=== PATIENT | female | born 1960 | race Caucasian/White ===

== ENCOUNTER → 2017-10-29 | Outpatient (CLI) | payer OTHER | END | disposition home or self-care (01) | LOC: LABPAT 15:35 | PROVIDERS: ATTEND Orthopaedic Surgery | DX: Z01.812 Encounter for preprocedural laboratory examination (principal) | CPT/HCPCS: 87070 ==

== ENCOUNTER 2017-11-03 06:21 | Inpatient (IN) | payer OTHER ==
[2017-11-02 11:09] VITALS: BMI 37.3
[~2017-11-03 06:21] MED LIST: HYDROmorphone 0.5 MG/0.5 ML SYRINGE IVP PRN; ONDANSETRON 4 MG/2 ML VIAL IVP PRN; ceFAZolin IN SWFI 2 GM/20 ML SYRINGE IVP ONE; fentaNYL (PF) 50 MCG/ML 2 ML AMP IV PRN
[2017-11-03] MEDS ORDERED: ONDANSETRON 4 MG/2 ML VIAL ONE (07:02)
[2017-11-03] MEDS ORDERED: LIDOCAINE 1% 20 ML VIAL (10MG/ML) FOR IV START INTRADERMA ONE (07:11)
[2017-11-03] MEDS: LACTATED RINGERS 1,000 ML IV SCH ×5 (07:11→20:07)
[2017-11-03] MEDS ORDERED: DEXAMETHASONE SOD PHOSPHATE 10 MG/ML 1 ML VIAL IV ONE (07:12)
[2017-11-03] MEDS ORDERED: SCOPOLAMINE 1.5MG/72HR PATCH TRANSDERM ONE (07:12)
[2017-11-03 07:18] LABS: Glucose,Whole Blood 106 mg/dL (75-99)
[2017-11-03] MEDS ORDERED: fentaNYL (PF) 50 MCG/ML 2 ML AMP ONE (07:47)
[2017-11-03] MEDS ORDERED: MIDAZOLAM 2 MG/2 ML VIAL ONE (07:47)
[2017-11-03] MEDS ORDERED: diphenhydrAMINE 50 MG/ML 1 ML VIAL ONE (07:47)
[2017-11-03] MEDS ORDERED: ceFAZolin 3,000 MG in SODIUM CHLORIDE 0.9% IRRIGATIO 3,000 ML IRRIGATION ONE (08:15)
[2017-11-03] MEDS ORDERED: LACTATED RINGERS 1,000 ML IV ONE (08:25)
[2017-11-03] MEDS ORDERED: ONDANSETRON 4 MG/2 ML VIAL IVP PRN (09:52)
[2017-11-03] MEDS ORDERED: NA PHOS,M-B/NA PHOS,DI-BA 133 ML ENEMA RECTAL PRN (09:52)
[2017-11-03] MEDS ORDERED: MAGNESIUM HYDROXIDE 2,400 MG/10 ML CUP PO PRN (09:52)
[2017-11-03] MEDS ORDERED: NALOXONE 0.4 MG/ML 1 ML VIAL IV PRN (09:52)
[2017-11-03] MEDS ORDERED: MORPHINE SULFATE 2 MG/ML SYRINGE IVP PRN ×2 (09:52)
[2017-11-03] MEDS ORDERED: BISACODYL 10 MG SUPP RECTAL PRN (09:52)
[2017-11-03] MEDS ORDERED: MORPHINE SULFATE 2 MG/ML SYRINGE IV PRN ×2 (09:52)
[2017-11-03] MEDS ORDERED: ACETAMINOPHEN TAB 325 MG TAB PO PRN (09:52)
[2017-11-03] MEDS ORDERED: HYDROcodone/APAP 5-325MG 1 EACH TAB PO PRN (09:52)
[2017-11-03] MEDS ORDERED: TEMAZEPAM 15 MG CAP PO PRN (09:52)
--- NOTE | 2017-11-03 10:15 | XR ---
EXAMINATION TYPE: XR knee limited RT DATE OF EXAM: 11/03/2017 COMPARISON: NONE TECHNIQUE: Two views submitted HISTORY: Post op FINDINGS: There is a prosthetic knee in near anatomic alignment. There is soft tissue edema and emphysema. IMPRESSION: 1. Postoperative change. Appears in near-anatomic alignment
[2017-11-03] MEDS ORDERED: ALBUTEROL NEBULIZED 2.5 MG/3 ML INHALATION PRN (12:09)
[2017-11-03] MEDS ORDERED: BUDESONIDE 1 MG/2 ML NEBU INHALATION PRN (12:09)
[2017-11-03] MEDS ORDERED: SUCRALFATE 1 GM TAB PO PRN (12:09)
[2017-11-03] MEDS: hydrOXYzine PAMOATE 25 MG CAP PO PRN ×2 (12:26→19:42)
[2017-11-03] MEDS: HYDROcodone/APAP 5-325MG 1 EACH TAB PO PRN ×2 (12:26→19:44)
--- NOTE | 2017-11-03 13:32 | P.CONS ---
History of Present Illness - Reason for Consult Consult date: 11/03/17 Medical Management Requesting physician: Luis Espinoza - Chief Complaint s/p right TKA - History of Present Illness 57-year-old female who underwent elective right total knee arthroplasty on 11/03/[address] Cowart was consulted for medical management. The patient underwent right knee arthroscopy, medial menisectomy, and medial femoral chondroplasty on 08/19/2017. She reports having an effusion of her knee postoperatively that required drainage. The patient states she continued to have pain in her knee and decided to undergo knee replacement. She has a history of asthma, gastroesophageal reflux disease, hypertension, osteoarthritis, anxiety, and depression. She has a surgical history of hysterectomy and 2 C-sections. She is a nonsmoker. She denies alcohol use. The patient was seen and examined at the bedside post-operatively. She is complaining of pain to her right knee 10/10. She reports receiving morphine which did not help her pain. She just received 2 [place] and Vistaril. She complains of pain to the anterior knee and thigh. Caleb bandage wrap is present. She denies shortness of breath or cough. Denies chest pain or pressure. Denies nausea or vomiting. She states she has been tolerating liquids after surgery. She remains hemodynamically stable. Review of Systems GENERAL: Patient denies fever. Denies chills. EYES: Denies blurred vision. Denies vision changes. Denies eye pain. EARS, NOSE, MOUTH, & THROAT: Denies headache. Denies sore throat. Denies ear pain. RESPIRATORY: Denies cough. Denies shortness of breath. Denies sputum production. Denies hemoptysis. CARDIOVASCULAR: Denies chest pain or pressure. Denies palpitations. Denies arrhythmias. GASTROINTESTINAL: Denies abdominal pain. Denies diarrhea. Denies constipation. Denies nausea. Denies vomiting. Denies heartburn. Denies blood in the stool. GENITOURINARY: Denies urinary frequency. Denies burning. Denies dysuria. Denies cloudy urine. Denies blood in the urine. MUSCULOSKELETAL: Positive for pain to right anterior knee and thigh. INTEGUMENTARY: Denies pruitis. Denies rash. PSYCHIATRIC: Denies suicidal or homicial ideations. ENDOCRINE: Denies weight change. Denies polydipsia. Denies polyuria. HEMATOLOGIC: Denies bleeding disorders. Past Medical History Past Medical History: Asthma, GERD/Reflux, Hypertension, Osteoarthritis (OA) Additional Past Medical History / Comment(s): hypoglycemia, hx. ulcers History of Any Multi-Drug Resistant Organisms: None Reported Past Surgical History: Section, Cholecystectomy, Hysterectomy, Orthopedic Surgery Additional Past Surgical History / Comment(s): C/S x2, arthroscopy knee, laparoscopy Past Anesthesia/Blood Transfusion Reactions: No Reported Reaction Smoking Status: Never smoker - Past Family History Mother Family Medical History: Cancer Father Family Medical History: Cancer Medications and Allergies Home Medications Medication Instructions Recorded Confirmed Type Albuterol Sulfate [Proair Hfa] 1 - 2 puff INHALATION RT-Q6H PRN 11/02/17 History Budesonide [Pulmicort Flexhaler] 2 puff INHALATION RT-BID PRN 11/02/17 11/03/17 History Escitalopram [Lexapro] 20 mg PO DAILY 11/02/17 11/03/17 History HYDROcodone/APAP 5-325MG [[place] 1 tab PO Q6HR PRN 11/02/17 11/03/17 History 5-325] Lansoprazole [Prevacid] 30 mg PO DAILY 11/02/17 11/03/17 History QUEtiapine [SEROquel] 150 mg PO HS 11/02/17 11/03/17 History Sucralfate [Carafate] 1 gm PO BID PRN 11/02/17 11/03/17 History Warfarin [Coumadin] 7.5 mg PO DAILY@199911/02/17 11/03/17 History amLODIPine [Norvasc] 5 mg PO BID 11/02/17 11/03/17 History cloNIDine HCL [Catapres] 0.1 mg PO BID 11/02/17 11/03/17 History clonazePAM [KlonoPIN] 1.5 mg PO HS 11/02/17 11/03/17 History lamoTRIgine [LaMICtal] 150 mg PO DAILY 11/02/17 11/03/17 History Allergies Allergy/AdvReac Type Severity Reaction Status Date / Time Iodinated Contrast- Oral and Allergy Dyspnea Verified 11/03/17 10:00 IV Dye shellfish derived Allergy Dyspnea Verified 11/03/17 10:00 levofloxacin [From Levaquin] AdvReac GI upset Verified 11/03/17 10:00 povidone-iodine AdvReac Itching Verified 11/03/17 10:00 [From Betadine] soap [From Betadine] AdvReac Itching Verified 11/03/17 10:00 Physical Exam Vitals: Vital Signs Temp Pulse Pulse Resp BP Pulse Ox 11/03/17 11:43 96 11/03/17 10:29 97.7 F 72 16 124/60 96 11/03/17 10:15 71 16 125/63 97 11/03/17 10:00 70 16 123/64 96 11/03/17 09:45 97.7 F 74 16 125/61 96 11/03/17 07:04 97.1 F L 76 16 130/77 95 Intake and Output 11/02/17 11/03/17 11/03/17 22:59 06:59 14:59 Intake Total 1201 Output Total 1050 Balance 151 Intake: IV 1201 Output: Urine 1000 Estimated Blood Loss 50 Other: Voiding Method Bedpan # Voids 1 GENERAL: This is a 57-year-old female in no apparent distress at the time of examination, but appears to be uncomfortable and in pain. Pleasant and cooperative. HEENT: Head is atraumatic, normocephalic. Pupils are equal, round, and reactive to light. Sclerae anicteric. Conjunctivae are clear. Mucus membranes of the mouth are moist. Neck is supple. RESPIRATORY: Clear to ausculation. No wheezes, rales, or rhonchi. No use of accessory muscles. Patient maintaining oxygen saturation greater than 92%. No chest wall tenderness is noted on palpation or with deep breathing. CARDIOVASCULAR: Regular rate and rhythm. S1 and S2 noted. No systolic or diastolic murmur auscultated. No JVD noted. No S3 or S4 noted. GASTROINTESTINAL: No distention noted. Abdomen soft and round. Normal active bowel sounds auscultated x 4 quadrants. No pain or tenderness noted upon palpation. INTEGUMENTARY: Caleb bandage wrap to right lower extremity with ice packs noted. No drainage noted. No cyanosis. No jaundice. No rashes noted. No cellulitis noted. EXTREMITIES: 2+ peripheral pulses. No evidence of peripheral edema. No calf tenderness noted. NEUROLOGIC: Cranial nerves II-XII intact. PSYCHIATRIC: Awake, alert, and oriented X 3. Appropriate affect. Intact judgement and insight. Results Labs: Abnormal Lab Results - Last 24 Hours (Table) 11/03/17 Range/Units 07:14 POC Glucose (mg/dL) 106 H (75-99) mg/dL Assessment and Plan Plan: ASSESSMENT: Osteoarthritis, s/p right total knee arthroplasty, POD # 0 History of recent right knee arthroscopy, medial menisectomy, and medial femoral chondroplasty on 08/19/2017. History of asthma, no evidence of acute exacerbation Gastroesophageal reflux disease Hypertension Generalized anxiety disorder Depression Obesity: BMI 37.3 PLAN: Continue postoperative care per orthopedics Pain control. We will add Dilaudid 0.5 mg every 3 hours PRN as patient continues to have severe pain Activity as tolerated Incentive spirometer 10 times an hour while awake Resume all medications Monitor labs GI prophylaxis: Protonix 40 mg PO Daily DVT prophylaxis: Coumadin Monitor vital signs and address as appropriate Further recommendations pending patient's course Thank you for this consult. We will continue to follow along with Danielle during her hospital stay. Nurse practitioner note has been reviewed by physician. Signing provider agrees with the documented findings, assessment, and plan of care.
[2017-11-03] MEDS: HYDROmorphone 0.5 MG/0.5 ML SYRINGE IVP PRN ×3 (13:50→21:59)
[2017-11-03] MEDS: ceFAZolin IN SWFI 2 GM/20 ML SYRINGE IVP SCH (17:15)
[2017-11-03] MEDS ORDERED: WARFARIN 5 MG TAB PO ONE (18:00)
[2017-11-03] MEDS: amLODIPine 5 MG TAB PO SCH (20:10)
[2017-11-03] MEDS: QUEtiapine 50 MG TAB PO SCH (20:10)
[2017-11-03] MEDS: cloNIDine HCL 0.1 MG TAB PO SCH (20:10)
[2017-11-03] MEDS: SENNOSIDES-DOCUSATE SODIUM 1 EACH TAB PO SCH (20:12)
[2017-11-03] MEDS: clonazePAM 0.5 MG TAB PO SCH (20:12)
[2017-11-04] MEDS: ceFAZolin IN SWFI 2 GM/20 ML SYRINGE IVP SCH (00:17)
[2017-11-04] MEDS: hydrOXYzine PAMOATE 25 MG CAP PO PRN (03:02)
[2017-11-04] MEDS: HYDROcodone/APAP 5-325MG 1 EACH TAB PO PRN (03:03)
[2017-11-04] MEDS: HYDROmorphone 0.5 MG/0.5 ML SYRINGE IVP PRN (05:15)
[2017-11-04] MEDS: LACTATED RINGERS 1,000 ML IV SCH ×3 (06:11→14:58)
[2017-11-04 08:07] LABS: INR 1.8 (<1.2); Prothrombin Time 16.7 sec (9.0-12.0)
[2017-11-04 08:26] LABS: Anion Gap 14 mmol/L; Blood Urea Nitrogen 9 mg/dL (7-17); Calcium 9.4 mg/dL (8.4-10.2); Carbon Dioxide 25 mmol/L (22-30); Chloride 99 mmol/L (98-107); Glucose 111 mg/dL (74-99); Sodium 138 mmol/L (137-145)
[2017-11-04 08:30] LABS: Potassium 5.1 mmol/L (3.5-5.1)
[2017-11-04] MEDS: ESCITALOPRAM 20 MG TAB PO SCH (08:33)
[2017-11-04] MEDS: PANTOPRAZOLE 40 MG TABLET PO SCH (08:33)
[2017-11-04] MEDS: lamoTRIgine 100 MG TAB PO SCH (08:34)
[2017-11-04] MEDS: amLODIPine 5 MG TAB PO SCH ×2 (08:34→20:32)
[2017-11-04] MEDS: cloNIDine HCL 0.1 MG TAB PO SCH ×2 (08:34→20:32)
[2017-11-04] MEDS ORDERED: KETOROLAC 30 MG/ML 1 ML VIAL IVP PRN (08:40)
[2017-11-04] MEDS ORDERED: HYDROcodone/APAP 7.5-325MG 1 EACH TAB PO PRN (08:42)
--- NOTE | 2017-11-04 08:51 | P.PN ---
Subjective Progress Note Date: 11/04/17 Principal diagnosis: Status post right total knee arthroplasty This is a 57 year-old female post right total knee arthroplasty. This is post- op day 1. The patient was evaluated at the bedside today. The patient denies nausea, vomiting, abdominal pain, shortness of breath, and chest pain this morning. She states her pain is moderately controlled at this time. The patient has not been up with physical therapy. Objective - Vital Signs Vital signs: Vital Signs Temp 98.7 F 11/04/17 07:53 Pulse 88 11/04/17 07:53 Resp 15 11/04/17 07:53 BP 115/74 11/04/17 07:53 Pulse Ox 90 L 11/04/17 07:53 Intake & Output 11/03/17 11/04/17 11/04/17 18:59 06:59 18:59 Intake Total 2161 2825 Output Total 1850 1360 Balance 311 1465 Weight 117.934 kg Intake: IV 1201 Intake, IV Titration 1205 Amount Lactated Ringers 1,000 ml 1205 @ 100 mls/hr IV .Q10H NATALIA Rx#:[id number] Oral 960 1620 Output: Urine 1800 1360 Estimated Blood Loss 50 Other: Voiding Method Bedpan Bedpan # Voids 1 3 # Bowel Movements 0 - Exam The patient does not appear in acute distress. Alert and orientated x3. Dressing is clean dry and intact. Incision appears fine with no erythema or active drainage. Calf is soft and nontender. Good foot and ankle motion without difficulty. Sensation and circulatory status is intact. - Labs CBC & Chem 7: 11/04/17 07:01 Labs: Abnormal Lab Results - Last 24 Hours (Table) 11/04/17 11/04/17 Range/Units 07:01 07:01 PT 16.7 H (9.0-12.0) sec INR 1.8 H (<1.2) Glucose 111 H (74-99) mg/dL Assessment and Plan (1) Primary localized osteoarthritis of right knee Current Visit: Yes Status: Acute Code(s): M17.11 - UNILATERAL PRIMARY OSTEOARTHRITIS, RIGHT KNEE SNOMED Code(s): 902266550 (2) Status post total right knee replacement Current Visit: Yes Status: Acute Code(s): Z96.651 - PRESENCE OF RIGHT ARTIFICIAL KNEE JOINT SNOMED Code(s): 0546447150954 Plan: 1. Continue pain control 2. Anticoagulation with Coumadin per protocol 3. Start physical therapy, CPM, and ambulation 4. Anticipate discharge home with homecare likely on Thursday
--- NOTE | 2017-11-04 09:35 | OP ---
OPERATIVE REPORT DATE OF SERVICE: 11/03/2017 SURGEON: Luis Espinoza DO. MAIL OFFICER: Melanie Melvin NP. PREOPERATIVE DIAGNOSIS: Degenerative joint disease of right knee. POSTOPERATIVE DIAGNOSIS: Degenerative joint disease of right knee. PROCEDURE PERFORMED: Right total knee replacement arthroplasty utilizing Persona press-fit component. ANESTHESIA: Spinal. ESTIMATED BLOOD LOSS: SPECIMENS REMOVED: COMPLICATIONS: OPERATIVE FINDINGS: DESCRIPTION OF PROCEDURE: The patient was taken to the operative suite and placed in the supine position. Spinal anesthesia was performed by the department of anesthesiology. Betadine prep was carried out over the right knee from mid thigh to mid calf. Sterile drapes applied in the usual manner. A medial parapatellar incision was developed. Sharp dissection through subcutaneous tissue was performed. The medial retinaculum was incised. The patella was everted and dislocated laterally and the knee brought into flexion and held in a leg orantes. The intramedullary cutting guide was utilized in shaping the femur. A size 9 right femoral component was selected. The appropriate femoral cut were performed and the provisionary component size 9 was impacted into position with alignment and component to bone interface. Tibial cutting guide was then aligned and wafer cut was performed. The medial and lateral meniscus were excised. A size 5 tibial tibial component was selected for position as a positioning 10 mm spacer was utilized. The appropriate drill holes were then secured as the tibial component was marked for positioning. The patella was then shaped with shelving planer. A size 35 mm patella peg hole was marked and drilled. All trial components were then selected for final components. Pulsavac antibiotic solution was utilized in preparation for final components. The size right #5 trabecular metal pre-hole peg plate was placed in predrilled holes and impacted. The final size 9 right femoral component was placed in the predrilled hole and impacted for positioning. The final patellar component size 35 mm was placed in predrilled peg holes and impacted. Final size 10 polyethylene tray was inserted and locked into the tibial tray. The knee was placed in flexion as the pneumatic tourniquet was deflated. The area was irrigated with antibiotic Pulsavac solution. Superficial bleeding was controlled with electrocautery. The medial retinaculum was then approximated with #3 Vicryl suture horizontal mattress fashion, A #2 Quill suture was used to reenforce the retinaculum in running fashion. The 2-0 Vicryl was used for closure of the subcutaneous tissue and 3-0 Vicryl Quill suture was utilized in subcuticular closure of the skin. Dermabond was then utilized to seal the wound. Betadine and sterile pressure dressing was applied. The patient transferred to the recovery room in satisfactory condition. GROSS PATHOLOGY: There is evidence of a tricompartment degenerative joint disease of the right knee. MMODL / IJN: [id number] / [facility]
[2017-11-04 09:44] LABS: HCT 36.4 % (34.0-46.0); HGB 12.5 gm/dL (11.4-16.0); MCHC 34.4 g/dL (31.0-37.0); MCV 90.2 fL (80.0-100.0); Mean Platelet Volume 8.4; Platelet Count 278 k/uL (150-450); RBC 4.04 m/uL (3.80-5.40); RDW 13.7 % (11.5-15.5); WBC 10.1 k/uL (3.8-10.6)
--- NOTE | 2017-11-04 09:44 | P.PN ---
Subjective Progress Note Date: 11/04/17 57-year-old female who underwent elective right total knee arthroplasty on 11/03/[address] Cowart was consulted for medical management. The patient underwent right knee arthroscopy, medial menisectomy, and medial femoral chondroplasty on 08/19/2017. She reports having an effusion of her knee postoperatively that required drainage. The patient states she continued to have pain in her knee and decided to undergo knee replacement. She has a history of asthma, gastroesophageal reflux disease, hypertension, osteoarthritis, anxiety, and depression. She has a surgical history of hysterectomy and 2 C-sections. She is a nonsmoker. She denies alcohol use. 11/03/2017 The patient was seen and examined at the bedside post-operatively. She is complaining of pain to her right knee 03/03. She reports receiving morphine which did not help her pain. She just received 2 [place] and Vistaril. She complains of pain to the anterior knee and thigh. Caleb bandage wrap is present. She denies shortness of breath or cough. Denies chest pain or pressure. Denies nausea or vomiting. She states she has been tolerating liquids after surgery. She remains hemodynamically stable. 11/04/2017 The patient was seen and examined at the bedside. The patient states her pain has improved since yesterday and is currently tolerable. The patient states she has been up to the commode but has not worked with physical therapy or ambulated in the hallway. She denies nausea or vomiting. Denies shortness of breath or chest pain. Vital signs have been stable. Objective - Vital Signs Vital signs: Vital Signs Temp 98.7 F 11/04/17 07:53 Pulse 88 11/04/17 07:53 Resp 15 11/04/17 07:53 BP 115/74 11/04/17 07:53 Pulse Ox 90 L 11/04/17 07:53 Intake & Output 11/03/17 11/04/17 11/04/17 18:59 06:59 18:59 Intake Total 2161 2825 Output Total 1850 1360 Balance 311 1465 Weight 117.934 kg Intake: IV 1201 Intake, IV Titration 1205 Amount Lactated Ringers 1,000 ml 1205 @ 100 mls/hr IV .Q10H NATALIA Rx#:[id number] Oral 960 1620 Output: Urine 1800 1360 Estimated Blood Loss 50 Other: Voiding Method Bedpan Bedpan # Voids 1 3 # Bowel Movements 0 - Exam GENERAL: This is a 57-year-old female in no apparent distress at the time of examination. Pleasant and cooperative. HEENT: Head is atraumatic, normocephalic. Pupils are equal, round, and reactive to light. Sclerae anicteric. Conjunctivae are clear. Mucus membranes of the mouth are moist. Neck is supple. RESPIRATORY: Clear to ausculation. No wheezes, rales, or rhonchi. No use of accessory muscles. Patient maintaining oxygen saturation greater than 92%. No chest wall tenderness is noted on palpation or with deep breathing. CARDIOVASCULAR: Regular rate and rhythm. S1 and S2 noted. No systolic or diastolic murmur auscultated. No JVD noted. No S3 or S4 noted. GASTROINTESTINAL: No distention noted. Abdomen soft and round. Normal active bowel sounds auscultated x 4 quadrants. No pain or tenderness noted upon palpation. INTEGUMENTARY: Dressing to right knee clean dry and intact. Ice packs present. No drainage noted. No cyanosis. No jaundice. No rashes noted. No cellulitis noted. EXTREMITIES: 2+ peripheral pulses. No evidence of peripheral edema. No calf tenderness noted. NEUROLOGIC: Cranial nerves II-XII intact. PSYCHIATRIC: Awake, alert, and oriented X 3. Appropriate affect. Intact judgement and insight. - Labs CBC & Chem 7: 11/04/17 07:01 Labs: Abnormal Lab Results - Last 24 Hours (Table) 11/04/17 11/04/17 Range/Units 07:01 07:01 PT 16.7 H (9.0-12.0) sec INR 1.8 H (<1.2) Glucose 111 H (74-99) mg/dL Assessment and Plan Plan: ASSESSMENT: Osteoarthritis, s/p right total knee arthroplasty, POD # 1 History of recent right knee arthroscopy, medial menisectomy, and medial femoral chondroplasty on 08/19/2017. History of asthma, no evidence of acute exacerbation Gastroesophageal reflux disease Hypertension Generalized anxiety disorder Depression Obesity: BMI 37.3 PLAN: Continue postoperative care per orthopedics Pain control. Activity as tolerated. Encourage ambulation. PT/OT Incentive spirometer 10 times an hour while awake Monitor labs. Monitor INR GI prophylaxis: Protonix 40 mg PO Daily DVT prophylaxis: Coumadin Monitor vital signs and address as appropriate Further recommendations pending patient's course Nurse practitioner note has been reviewed by physician. Signing provider agrees with the documented findings, assessment, and plan of care.
[2017-11-04] MEDS: HYDROcodone/APAP 7.5-325MG 1 EACH TAB PO PRN ×3 (10:53→23:04)
[2017-11-04 10:57] LABS: Lymphocytes # (M) 2.02 k/uL (1.0-4.8); Neutrophils # (M) 7.58 k/uL (1.3-7.7); Neutrophils % (M) 75 %; Nucleated Red Blood Cells 0 /100 WBC (0-0); Total Cells Counted 100
[2017-11-04] MEDS ORDERED: WARFARIN 5 MG TAB PO ONE (18:00)
[2017-11-04] MEDS: QUEtiapine 50 MG TAB PO SCH (20:31)
[2017-11-04] MEDS: SENNOSIDES-DOCUSATE SODIUM 1 EACH TAB PO SCH (20:32)
[2017-11-04] MEDS: clonazePAM 0.5 MG TAB PO SCH (20:34)
[2017-11-05] MEDS: HYDROcodone/APAP 7.5-325MG 1 EACH TAB PO PRN ×4 (04:59→21:44)
[2017-11-05] MEDS: LACTATED RINGERS 1,000 ML IV SCH ×4 (05:03→23:41)
[2017-11-05 07:31] LABS: INR 3.3 (<1.2)
[2017-11-05] MEDS: amLODIPine 5 MG TAB PO SCH ×2 (08:14→21:44)
[2017-11-05] MEDS: PANTOPRAZOLE 40 MG TABLET PO SCH (08:14)
[2017-11-05] MEDS: ESCITALOPRAM 20 MG TAB PO SCH (08:14)
[2017-11-05] MEDS: lamoTRIgine 100 MG TAB PO SCH (08:14)
--- NOTE | 2017-11-05 08:25 | P.PN ---
Subjective Progress Note Date: 11/05/17 Principal diagnosis: Status post right total knee arthroplasty This is a 57 year-old female post right total knee arthroplasty. This is post- op day 2. The patient was evaluated at the bedside today. The patient denies nausea, vomiting, abdominal pain, shortness of breath, and chest pain this morning. She states her pain is controlled at this time. The patient has been up with physical therapy but is moving slow. Objective - Vital Signs Vital signs: Vital Signs Temp 98.3 F 11/05/17 07:50 Pulse 93 11/05/17 07:50 Resp 16 11/05/17 07:50 BP 137/78 11/05/17 07:50 Pulse Ox 96 11/05/17 07:50 Intake & Output 11/04/17 11/05/17 11/05/17 18:59 06:59 18:59 Intake Total 500 440 Output Total 300 Balance 200 440 Intake: Oral 500 240 Other 200 Output: Urine 300 Other: Voiding Method Bedside Commode Bedside Commode Bedpan # Voids 2 3 - Exam The patient does not appear in acute distress. Alert and orientated x3. Dressing is clean dry and intact. Incision appears fine with no erythema or active drainage. Calf is soft and nontender. Good foot and ankle motion without difficulty. Sensation and circulatory status is intact. - Labs CBC & Chem 7: 11/04/17 07:01 11/04/17 07:01 Labs: Abnormal Lab Results - Last 24 Hours (Table) 11/04/17 11/05/17 Range/Units 07:01 06:30 PT 30.0 H (9.0-12.0) sec INR 3.3 H (<1.2) Glucose 111 H (74-99) mg/dL Assessment and Plan (1) Primary localized osteoarthritis of right knee Current Visit: Yes Status: Acute Code(s): M17.11 - UNILATERAL PRIMARY OSTEOARTHRITIS, RIGHT KNEE SNOMED Code(s): 478724070 (2) Status post total right knee replacement Current Visit: Yes Status: Acute Code(s): Z96.651 - PRESENCE OF RIGHT ARTIFICIAL KNEE JOINT SNOMED Code(s): 1015396255099 Plan: 1. Continue pain control 2. Anticoagulation with Coumadin per protocol 3. Start physical therapy, CPM, and ambulation 4. Anticipate discharge home with homecare either today or tomorrow
[2017-11-05] MEDS: hydrOXYzine PAMOATE 25 MG CAP PO PRN ×3 (10:25→21:44)
[2017-11-05] MEDS ORDERED: HYDROmorphone 2 MG TAB PO PRN (14:00)
[2017-11-05] MEDS ORDERED: MORPHINE ORAL SOLN 10 MG/5 ML CUP PO PRN ×4 (14:00→14:03)
--- NOTE | 2017-11-05 15:32 | P.PN ---
Subjective Progress Note Date: 11/05/17 Progress note being dictated for Dr. Alonso Interval history: This is a 57-year-old female status post right total knee arthroplasty, postop day #2. Patient has ambulated up to bathroom, into hallway , tolerating exertion well. Awaiting CPM machine. Mild nausea early this morning, subsided. Passing flatus, no bowel movement. Denies chest pain, palpitations or shortness of breath. Denies lightheadedness dizziness or focal deficits. INR up to 3.3. Objective - Vital Signs Vital signs: Vital Signs Temp 98.3 F 11/05/17 07:50 Pulse 93 11/05/17 07:50 Resp 16 11/05/17 07:50 BP 137/78 11/05/17 07:50 Pulse Ox 96 11/05/17 07:50 Intake & Output 11/04/17 11/05/17 11/05/17 18:59 06:59 18:59 Intake Total 500 440 500 Output Total 300 Balance 200 440 500 Intake: Oral 500 240 500 Other 200 Output: Urine 300 Other: Voiding Method Bedside Commode Bedside Commode Bedpan # Voids 2 3 - Exam PHYSICAL EXAM: VITAL SIGNS: As above GENERAL: Sitting up in chair, right lower extremity elevated, no acute distress HEENT: Conjunctivae normal. eyes normal. Oral mucosa moist NECK: No JVD. No thyroid enlargement. No LNs CARDIOVASCULAR: S1, S2 muffled. No murmur RESPIRATION: Breath sounds diminished in the bases. No rhonchi or crackles. No bronchial breathing. ABDOMEN: Soft, nontender . No guarding. no masses palpable.Bowel sounds heard. LEGS: No edema. no swelling, no calf tenderness PSYCHIATRY: Alert and oriented -3, mood and affect normal. NERVOUS SYSTEM: Cranial N 2-12 grossly normal. Moves all 4 limbs. Diffuse weakness No focal deficits. Skin: Right knee dressings clean dry and intact, elevated with ice pack on. - Labs CBC & Chem 7: 11/04/17 07:01 11/04/17 07:01 Labs: Abnormal Lab Results - Last 24 Hours (Table) 11/05/17 Range/Units 06:30 PT 30.0 H (9.0-12.0) sec INR 3.3 H (<1.2) Assessment and Plan Assessment: 1. Osteoarthritis, status post right total knee arthroplasty, postop day #2 2. Recent right knee arthroscopy, medial menisectomy and medial femoral chondroplasty on 08/19/2017 3. Chronic asthma, no acute exacerbation 4. Gastroesophageal reflux disease 5. Hypertension 6. Obesity, BMI 37.3 7. Depression Plan continue on current medication regime ,monitoring and symptomatic treatment. Aggressive pulmonary toileting with incentive spirometer reinforced. PT/OT. Pain management/anticoagulation as per primary. INR up to 3.3, no Coumadin as per protocol. Discharge planning in progress for tomorrow as per orthopedics.Further recommendations to follow. The impression and plan of care has been dictated as directed. : I performed a history and examination of this patient, discussed the same with the dictator. I agree with the dictator's note ,documented as a scribe. Any additional findings or plans will be noted.
[2017-11-05] MEDS ORDERED: WARFARIN 0.5 MG TAB PO ONE (18:00)
[2017-11-05] MEDS: clonazePAM 0.5 MG TAB PO SCH ×2 (21:43→21:44)
[2017-11-05] MEDS: QUEtiapine 50 MG TAB PO SCH (21:44)
[2017-11-05] MEDS: cloNIDine HCL 0.1 MG TAB PO SCH (21:45)
[2017-11-05] MEDS: SENNOSIDES-DOCUSATE SODIUM 1 EACH TAB PO SCH (21:48)
[2017-11-06] MEDS: hydrOXYzine PAMOATE 25 MG CAP PO PRN ×3 (04:46→16:06)
[2017-11-06] MEDS: HYDROcodone/APAP 7.5-325MG 1 EACH TAB PO PRN ×3 (04:46→16:05)
[2017-11-06 06:41] LABS: HCT 31.8 % (34.0-46.0); MCHC 34.5 g/dL (31.0-37.0); MCV 90.1 fL (80.0-100.0); Platelet Count 244 k/uL (150-450); RBC 3.54 m/uL (3.80-5.40); RDW 13.6 % (11.5-15.5)
[2017-11-06 06:44] LABS: Prothrombin Time 26.9 sec (9.0-12.0)
[2017-11-06 07:45] LABS: Lymphocytes # (M) 1.08 k/uL (1.0-4.8); Monocytes # (M) 0.78 k/uL (0-1.0); Neutrophils # (M) 4.14 k/uL (1.3-7.7); Neutrophils % (M) 69 %; Nucleated Red Blood Cells 0 /100 WBC (0-0); Total Cells Counted 100
--- NOTE | 2017-11-06 08:58 | P.DS ---
Providers Date of admission: 11/03/17 06:21 Expected date of discharge: 11/06/17 Attending physician: Luis Espinoza Consults: 11/03/17 09:52 Consult Physician Routine Consulting Provider: Chago Cowart Reason/Comments: medical management Do you want consulting provider notified?: Yes Primary care physician: Chago Cowart - Discharge Diagnosis(es) (1) Primary localized osteoarthritis of right knee Current Visit: Yes Status: Acute (2) Status post total right knee replacement Current Visit: Yes Status: Acute Hospital Course: This is a pleasant 57-year-old female last seen in our office with complaints of right knee pain. Patient has known history of degenerative arthritis of the right knee and presented to discuss options. After discussion and consideration , patient elected to proceed with a total knee arthroplasty of the right knee. The patient was seen preoperatively and medically cleared for surgery by Dr. Cowart. The patient was admitted to [facility] and underwent right total knee arthroplasty on 11/03/[address] Espinoza. The procedure was performed without complications or sequelae. The patient has done well postoperatively. The patient was seen and evaluated at bedside today and denies any new complaints. Pain is reasonably controlled. Dressing is clean dry and intact. Incision looks fine with no erythema or active drainage. Calf is soft and nontender. The patient has full foot and ankle motion without difficulty. Patient's right lower extremity is neurovascular intact. Patient is orthopedically stable for discharge to home today. Pertinent Studies: Laboratory Tests 11/04/17 11/06/17 11/06/17 07:01 06:06 06:06 WBC 6.0 RBC 3.54 L Hgb 11.0 L Hct 31.8 L PT 26.9 H INR 3.0 H Glucose 111 H Patient Condition at Discharge: Stable Plan - Discharge Summary Discharge Rx Participant: Yes New Discharge Prescriptions: New Aspirin 325 mg PO DAILY #30 tab Warfarin [Coumadin] 2.5 mg PO DIRECTED #30 tab Hydrocodone/Acetaminophen [Watson 7.5-325] 1 - 2 tab PO Q4-6H PRN 7 Days #50 tab PRN Reason: Pain Sennosides-Docusate Sodium [Senokot-S] 2 tab PO DAILY #30 tablet Continue Sucralfate [Carafate] 1 gm PO BID PRN PRN Reason: Heartburn Budesonide [Pulmicort Flexhaler] 2 puff INHALATION RT-BID PRN PRN Reason: Dyspnea clonazePAM [KlonoPIN] 1.5 mg PO HS lamoTRIgine [LaMICtal] 150 mg PO DAILY cloNIDine HCL [Catapres] 0.1 mg PO BID amLODIPine [Norvasc] 5 mg PO BID QUEtiapine [SEROquel] 150 mg PO HS Lansoprazole [Prevacid] 30 mg PO DAILY Escitalopram [Lexapro] 20 mg PO DAILY No Action Albuterol Sulfate [Proair Hfa] 1 - 2 puff INHALATION RT-Q6H PRN PRN Reason: Dyspnea HYDROcodone/APAP 5-325MG [Watson 5-325] 1 tab PO Q6HR PRN PRN Reason: Pain Warfarin [Coumadin] 7.5 mg PO DAILY@1999 Discharge Medication List Albuterol Sulfate [Proair Hfa] 1 - 2 puff INHALATION RT-Q6H PRN 11/02/17 [ History] Budesonide [Pulmicort Flexhaler] 2 puff INHALATION RT-BID PRN 11/02/17 [History] Escitalopram [Lexapro] 20 mg PO DAILY 11/02/17 [History] HYDROcodone/APAP 5-325MG [Watson 5-325] 1 tab PO Q6HR PRN 11/02/17 [History] Lansoprazole [Prevacid] 30 mg PO DAILY 11/02/17 [History] QUEtiapine [SEROquel] 150 mg PO HS 11/02/17 [History] Sucralfate [Carafate] 1 gm PO BID PRN 11/02/17 [History] Warfarin [Coumadin] 7.5 mg PO DAILY@199911/02/17 [History] amLODIPine [Norvasc] 5 mg PO BID 11/02/17 [History] cloNIDine HCL [Catapres] 0.1 mg PO BID 11/02/17 [History] clonazePAM [KlonoPIN] 1.5 mg PO HS 11/02/17 [History] lamoTRIgine [LaMICtal] 150 mg PO DAILY 11/02/17 [History] Aspirin 325 mg PO DAILY #30 tab 11/05/17 [Rx] Hydrocodone/Acetaminophen [Watson 7.5-325] 1 - 2 tab PO Q4-6H PRN 7 Days #50 tab 11/05/17 [Rx] Sennosides-Docusate Sodium [Senokot-S] 2 tab PO DAILY #30 tablet 11/05/17 [Rx] Warfarin [Coumadin] 2.5 mg PO DIRECTED #30 tab 11/05/17 [Rx] Follow up Appointment(s)/Referral(s): Luis Espinoza DO [Doctor of Osteopathic Medicine] - 11/18/17 9:[address] [facility], [NON-STAFF] - Chago Cowart MD [Primary Care Provider] - 1 Week Ambulatory/Diagnostic Orders: Continuous Passive Motion (CPM) Machine [DME.AMB1] Time Frame: 3 Weeks, Location : Determined By Patient Activity/Diet/Wound Care/Special Instructions: Weightbearing as tolerated with a walker Coumadin 2.5 mg 1 by mouth every other day for 7 days then take Aspirin 325mg daily for 1 month CPM 5-6 hours daily-Start CPM at 45 degrees then increase by 5 degrees every time on CPM as patient tolerates. Maximum total of 15 degrees every 24 hours. May shower in 3 days if no drainage from incision Keep incision clean and dry Hold Coumadin today, start Coumadin on 11/07/2017. Call [facility] at with questions or concerns Call [facility] to set up delivery time for CPM once home. # . Discharge Disposition: HOME WITH HOME HEALTH SERVICES
[2017-11-06 09:09] VITALS: PULSE 90
[2017-11-06] MEDS: cloNIDine HCL 0.1 MG TAB PO SCH (09:10)
[2017-11-06] MEDS: PANTOPRAZOLE 40 MG TABLET PO SCH (09:10)
[2017-11-06] MEDS: ESCITALOPRAM 20 MG TAB PO SCH (09:10)
[2017-11-06] MEDS: amLODIPine 5 MG TAB PO SCH (09:10)
[2017-11-06] MEDS: lamoTRIgine 100 MG TAB PO SCH (09:11)
[2017-11-06] MEDS: LACTATED RINGERS 1,000 ML IV SCH ×2 (11:28→18:11)
[2017-11-06 15:44] VITALS: BP 112/68; RESP 17; TEMP 98.9
[2017-11-06] MEDS ORDERED: WARFARIN 0.5 MG TAB PO ONE (18:00)
--- NOTE | 2017-11-06 18:18 | P.PN ---
Subjective Progress Note Date: 11/06/17 Progress note being dictated for Dr. Alonso Interval history: This is a 57-year-old female status post right total knee arthroplasty, postop day #2. Patient has ambulated up to bathroom, into hallway , tolerating exertion well. Awaiting CPM machine. Mild nausea early this morning, subsided. Passing flatus, no bowel movement. Denies chest pain, palpitations or shortness of breath. Denies lightheadedness dizziness or focal deficits. INR up to 3.3. 11/06/17 significant clinical improvement. Ambulated in the hallway, performed stairs with PT without difficulty. Pain controlled. Positive bowel movement. Afebrile. INR 3. Denies chest pain, palpitations or increasing shortness of breath. Good diet intake with no nausea or vomiting. Denies Lightheadedness or dizziness or focal deficits. Objective - Vital Signs Vital signs: Vital Signs Temp 98.9 F 11/06/17 15:00 Pulse 90 11/06/17 15:00 Resp 17 11/06/17 15:00 BP 112/68 11/06/17 15:00 Pulse Ox 92 L 11/06/17 15:09 Intake & Output 11/05/17 11/06/17 11/06/17 18:59 06:59 18:59 Intake Total 500 918 Balance 500 918 Intake: Intake, IV Titration 800 Amount Lactated Ringers 1,000 ml 800 @ 100 mls/hr IV .Q10H NATALIA Rx#:[id number] Oral 500 118 Other: Voiding Method Toilet # Voids 3 3 - Exam PHYSICAL EXAM: VITAL SIGNS: As above GENERAL: Sitting up in chair, right lower extremity elevated, no acute distress HEENT: Conjunctivae normal. eyes normal. Oral mucosa moist NECK: No JVD. No thyroid enlargement. No LNs CARDIOVASCULAR: S1, S2 muffled. No murmur RESPIRATION: Breath sounds diminished in the bases. No rhonchi or crackles. ABDOMEN: Soft, nontender . No guarding. no masses palpable.Bowel sounds heard. LEGS: No edema. no swelling, no calf tenderness PSYCHIATRY: Alert and oriented -3, mood and affect normal. NERVOUS SYSTEM: Cranial N 2-12 grossly normal. Moves all 4 limbs. Diffuse weakness No focal deficits. - Labs CBC & Chem 7: 11/06/17 06:06 11/04/17 07:01 Labs: Abnormal Lab Results - Last 24 Hours (Table) 11/06/17 11/06/17 Range/Units 06:06 06:06 RBC 3.54 L (3.80-5.40) m/uL Hgb 11.0 L (11.4-16.0) gm/dL Hct 31.8 L (34.0-46.0) % PT 26.9 H (9.0-12.0) sec INR 3.0 H (<1.2) Assessment and Plan Assessment: 1. Osteoarthritis, status post right total knee arthroplasty, postop day #2 2. Recent right knee arthroscopy, medial menisectomy and medial femoral chondroplasty on 08/19/2017 3. Chronic asthma, no acute exacerbation 4. Gastroesophageal reflux disease 5. Hypertension 6. Obesity, BMI 37.3 7. Depression Plan continue on current medication regime ,monitoring and symptomatic treatment. Discharge planning in progress as per orthopedics. Maintain Aggressive pulmonary toileting with incentive spirometer every hour 10 while awake at home. Pain management and anticoagulation as per primary. Follow-up with PCP in 1 week. The impression and plan of care has been dictated as directed. : I performed a history and examination of this patient, discussed the same with the dictator. I agree with the dictator's note ,documented as a scribe. Any additional findings or plans will be noted.
== END 2017-11-06 20:28 | disposition home health service (06) | DRG 470 ==
LOC: 2ORMAIN 06:21 → 3SUR 09:42
PROVIDERS: ADMIT Orthopaedic Surgery; ATTEND Orthopaedic Surgery
PROC: 0SRC0JA Replacement of Right Knee Joint with Synthetic Substitute, Uncemented, Open Approach (ICD-10-PCS; principal; 2017-11-03 08:00)
DX: M17.11 Unilateral primary osteoarthritis, right knee (principal); E66.9 Obesity, unspecified; F32.9 Major depressive disorder, single episode, unspecified; F41.1 Generalized anxiety disorder; I10 Essential (primary) hypertension; J45.909 Unspecified asthma, uncomplicated; K21.9 Gastro-esophageal reflux disease without esophagitis; Z68.37 Body mass index [BMI] 37.0-37.9, adult; Z79.01 Long term (current) use of anticoagulants; Z79.899 Other long term (current) drug therapy; Z90.710 Acquired absence of both cervix and uterus; Z79.891 Long term (current) use of opiate analgesic; Z88.8 Allergy status to other drugs, medicaments and biological substances; Z88.6 Allergy status to analgesic agent; Z91.013 Allergy to seafood
CPT/HCPCS: 80048; 85025; 85610; 88300; 94640; 94760

== ENCOUNTER → 2017-12-07 | Outpatient (CLI) | payer OTHER ==
--- NOTE | 2017-12-07 15:25 | US ---
EXAMINATION TYPE: US venous doppler duplex LE RT DATE OF EXAM: 12/07/2017 2:48 PM COMPARISON: NONE CLINICAL HISTORY: 57-year-old female M25.561 pain in right knee; post right knee replacement 5 weeks earlier; right calf pain SIDE PERFORMED: Right TECHNIQUE: The lower extremity deep venous system is examined utilizing real time linear array sonog cade with graded compression, doppler sonography and color-flow sonography. FINDINGS: VESSELS IMAGED: Common Femoral Vein Deep Femoral Vein Greater Saphenous Vein * Femoral Vein Popliteal Vein Small Saphenous Vein * Proximal Calf Veins Posterior tibial veins (* superficial vessels) Right Leg: Negative for DVT. Lesser Saphenous Vein is patent and compresses at patient's site of edwin n, right posterior calf. IMPRESSION: 1. The lesser saphenous vein is present along the posterior calf at the site of pain. There is no SVT here. 2. No evidence for DVT within the right lower extremity.
== END | disposition home or self-care (01) ==
LOC: RADUSWWP 14:20
PROVIDERS: ATTEND Orthopaedic Surgery
DX: I80.9 Phlebitis and thrombophlebitis of unspecified site (principal); M25.561 Pain in right knee; Z96.651 Presence of right artificial knee joint; Z48.89 Encounter for other specified surgical aftercare

== ENCOUNTER → 2018-06-02 | Day surgery (SDC) | payer OTHER ==
[2018-05-28 11:44] VITALS: BMI 35.9
[~2018-06-02] MED LIST changes: -HYDROmorphone 0.5 MG/0.5 ML SYRINGE IVP PRN; +LACTATED RINGERS 1,000 ML IV SCH; +LIDOCAINE 1% 20 ML VIAL (10MG/ML) FOR IV START INTRADERMA PRN; +LIDOCAINE 1% INJ 10MG/ML (20 ML MDV) ONE; -ONDANSETRON 4 MG/2 ML VIAL IVP PRN; +PROPOFOL 10 MG/ML 20 ML VIAL IV ONE; -ceFAZolin IN SWFI 2 GM/20 ML SYRINGE IVP ONE; -fentaNYL (PF) 50 MCG/ML 2 ML AMP IV PRN
[2018-06-02 08:22] VITALS: RESP 16; TEMP 97.5
[2018-06-02 08:40] LABS: Glucose,Whole Blood 113 mg/dL (75-99)
--- NOTE | 2018-06-02 08:47 | P.GSHP ---
History of Present Illness H&P Date: 06/02/18 Chief Complaint: GERD, constipation, screening colonoscopy This a 58-year-old female who presents today for EGD and screening colonoscopy. She has issues with GERD and constipation. Past Medical History Past Medical History: Asthma, GERD/Reflux, Hypertension, Osteoarthritis (OA) Additional Past Medical History / Comment(s): STATES OCCASIONAL BLOOD IN STOOL, STATES HAS HX OF ADHESIONS, CONSTIPATION, hypoglycemia, hx. ulcers History of Any Multi-Drug Resistant Organisms: None Reported Past Surgical History: Section, Cholecystectomy, Hysterectomy, Joint Replacement, Orthopedic Surgery Additional Past Surgical History / Comment(s): C/S x2, arthroscopy knee, laparoscopy, RT KNEE REPLACEMENT Past Anesthesia/Blood Transfusion Reactions: No Reported Reaction Smoking Status: Never smoker - Past Family History Mother Family Medical History: Cancer Father Family Medical History: Cancer Medications and Allergies Home Medications Medication Instructions Recorded Confirmed Type Albuterol Sulfate [Proair Hfa] 1 - 2 puff INHALATION RT-Q6H PRN 11/02/17 History Budesonide [Pulmicort Flexhaler] 2 puff INHALATION RT-BID PRN 11/02/17 05/28/18 History Escitalopram [Lexapro] 20 mg PO DAILY 11/02/17 05/28/18 History Lansoprazole [Prevacid] 30 mg PO DAILY 11/02/17 05/28/18 History Sucralfate [Carafate] 1 gm PO BID PRN 11/02/17 05/28/18 History amLODIPine [Norvasc] 5 mg PO BID 11/02/17 05/28/18 History cloNIDine HCL [Catapres] 0.1 mg PO BID 11/02/17 05/28/18 History clonazePAM [KlonoPIN] 1.5 mg PO HS 11/02/17 05/28/18 History lamoTRIgine [LaMICtal] 150 mg PO DAILY 11/02/17 05/28/18 History Allergies Allergy/AdvReac Type Severity Reaction Status Date / Time Iodinated Contrast- Oral and Allergy Dyspnea Verified 06/02/18 08:14 IV Dye shellfish derived Allergy Dyspnea Verified 06/02/18 08:14 levofloxacin [From Levaquin] AdvReac GI upset Verified 06/02/18 08:14 povidone-iodine AdvReac Itching Verified 06/02/18 08:14 [From Betadine] soap [From Betadine] AdvReac Itching Verified 06/02/18 08:14 Surgical - Exam Vital Signs Temp Pulse Resp BP Pulse Ox 97.5 F L 81 16 151/74 93 L 06/02/18 08:21 06/02/18 08:21 06/02/18 08:21 06/02/18 08:21 06/02/18 08:21 - General well developed, well nourished, no distress - Eyes PERRL - ENT normal pinna - Neck no masses - Respiratory normal expansion - Cardiovascular Rhythm: regular - Abdomen Abdomen: soft, non tender Results - Labs Abnormal Lab Results - Last 24 Hours (Table) 06/02/18 Range/Units 08:30 POC Glucose (mg/dL) 113 H (75-99) mg/dL Assessment and Plan Assessment: GERD, constipation. We'll perform EGD and screening colonoscopy.
--- NOTE | 2018-06-02 09:07 | P.OP ---
Date of Procedure: 06/02/18 Preoperative Diagnosis: GERD Screening colonoscopy Postoperative Diagnosis: Antral gastritis External hemorrhoids Normal colon Procedure(s) Performed: EGD Colonoscopy Anesthesia: MAC Surgeon: Mohan Bautista Pathology: other (Antrum) Condition: stable Disposition: PACU Description of Procedure: The patient's placed on the endoscopy table in the lateral position. She received IV sedation. The gastroscope placed oropharynx and passed in the esophagus into the stomach. Scope was then placed through the pylorus. The first and second portion of the duodenum appeared normal. Scope was then brought back the antrum this was mildly inflamed. A biopsies performed. Scope was then retroflexed and remainder of the stomach appeared normal. There is no significant hiatal hernia. The GE junction was at 40 cm. The distal esophagus. Normal. The proximal esophagus. Normal. Scope was withdrawn for patient. Next digital rectus performed which revealed external hemorrhoids. The flexible colonoscope was then placed patient anus and passed throughout the entire colon. The ileocecal valve was visualized. The cecum, ascending and transverse colon appeared normal. The descending and sigmoid colon appeared normal. The scope was then brought back the rectum and this appeared normal. Scope was withdrawn from the patient and the external hemorrhoids were visualized.
[2018-06-02 09:44] VITALS: BP 109/61; PULSE 68
== END | disposition home or self-care (01) ==
LOC: ORWHC2ENDO 08:01
PROVIDERS: ATTEND Surgery
DX: K29.50 Unspecified chronic gastritis without bleeding (principal); K21.0 Gastro-esophageal reflux disease with esophagitis; K59.00 Constipation, unspecified; K64.4 Residual hemorrhoidal skin tags; I10 Essential (primary) hypertension; J45.909 Unspecified asthma, uncomplicated; M19.90 Unspecified osteoarthritis, unspecified site; Z96.651 Presence of right artificial knee joint; Z79.899 Other long term (current) drug therapy; Z88.1 Allergy status to other antibiotic agents; Z91.041 Radiographic dye allergy status; Z91.013 Allergy to seafood; Z91.048 Other nonmedicinal substance allergy status
CPT/HCPCS: 88305; 45378; 43239; J2001; J2704

== ENCOUNTER → 2018-08-17 | Outpatient (CLI) | payer OTHER | END | disposition home or self-care (01) | LOC: LABWHC1 13:10 | PROVIDERS: ATTEND Internal Medicine Critical Care Medicine | DX: J45.909 Unspecified asthma, uncomplicated (principal) | CPT/HCPCS: 36415; 82785; 85008 ==

== ENCOUNTER → 2018-09-23 | Outpatient (CLI) | payer OTHER ==
[2018-09-23 11:40] LABS: HCT 38.3 % (34.0-46.0); HGB 12.7 gm/dL (11.4-16.0); MCH 29.5 pg (25.0-35.0); MCV 89.4 fL (80.0-100.0); Mean Platelet Volume 7.1; Platelet Count 303 k/uL (150-450); RBC 4.29 m/uL (3.80-5.40); RDW 14.3 % (11.5-15.5); WBC 5.2 k/uL (3.8-10.6)
[2018-09-23 13:16] LABS: Eosinophils # (M) 0.21 k/uL (0-0.7); Lymphocytes # (M) 1.46 k/uL (1.0-4.8); Monocytes # (M) 0.42 k/uL (0-1.0); Neutrophils # (M) 3.12 k/uL (1.3-7.7); Neutrophils % (M) 60 %; Nucleated Red Blood Cells 0 /100 WBC (0-0); Total Cells Counted 100
== END | disposition home or self-care (01) ==
LOC: LABPAT 10:12
PROVIDERS: ATTEND Surgery
DX: Z01.812 Encounter for preprocedural laboratory examination (principal); K43.0 Incisional hernia with obstruction, without gangrene; D64.9 Anemia, unspecified; F17.200 Nicotine dependence, unspecified, uncomplicated
CPT/HCPCS: 36415; 85025; 93005

== ENCOUNTER 2018-09-29 09:51 | Observation (INO) | payer OTHER ==
[~2018-09-29 09:51] MED LIST changes: +FAMOTIDINE 20 MG/2 ML VIAL IV PRN; +HEPARIN SODIUM,PORCINE 5,000 UNIT/ML 1 ML VIAL SQ ONE; -LIDOCAINE 1% INJ 10MG/ML (20 ML MDV) ONE; +METOCLOPRAMIDE 5 MG/ML 2 ML VIAL IVP PRN; +ONDANSETRON 4 MG/2 ML VIAL IVP PRN; -PROPOFOL 10 MG/ML 20 ML VIAL IV ONE; +SCOPOLAMINE 1.5MG/72HR PATCH TRANSDERM ONE
[2018-09-29 10:44] LABS: Glucose,Whole Blood 93 mg/dL (75-99)
[2018-09-29] MEDS ORDERED: DEXAMETHASONE SOD PHOS (MDV) 100 MG/10 ML VIAL IV ONE (10:44)
--- NOTE | 2018-09-29 11:05 | P.GSHP ---
History of Present Illness H&P Date: 09/29/18 Chief Complaint: GERD This a 58-year-old female who presents today for laparoscopic Maria R fundal plication.The patient has had long-standing problems with reflux esophagitis. The patient underwent recent EGD is found have evidence of esophagitis. Patient has been well informed on the procedure of laparoscopic Maria R fundoplication. The patient is aware the risk of the conversion to the open procedure, risk of injury to the stomach, liver and spleen. The patient is also a risk of recurrent GERD and dysphagia symptoms. The patient understands there is a postoperative diet of full liquids for 2 weeks after surgery. Past Medical History Past Medical History: Asthma, GERD/Reflux, Hypertension, Osteoarthritis (OA) Additional Past Medical History / Comment(s): STATES OCCASIONAL BLOOD IN STOOL, STATES HAS HX OF ADHESIONS, CONSTIPATION, hypoglycemia, hx. ulcers History of Any Multi-Drug Resistant Organisms: None Reported Past Surgical History: Section, Cholecystectomy, Hysterectomy, Joint Replacement, Orthopedic Surgery Additional Past Surgical History / Comment(s): C/S x2, arthroscopy knee, laparoscopy, RT KNEE REPLACEMENT Past Anesthesia/Blood Transfusion Reactions: No Reported Reaction, Motion Sickness Smoking Status: Never smoker - Past Family History Mother Family Medical History: Cancer Father Family Medical History: Cancer Medications and Allergies Home Medications Medication Instructions Recorded Confirmed Type Albuterol Sulfate [Proair Hfa] 1 - 2 puff INHALATION RT-Q6H PRN 11/02/17 09/29/18 History Escitalopram [Lexapro] 20 mg PO DAILY 11/02/17 09/29/18 History Lansoprazole [Prevacid] 30 mg PO DAILY 11/02/17 09/29/18 History clonazePAM [KlonoPIN] 1.5 mg PO HS 11/02/17 09/29/18 History lamoTRIgine [LaMICtal] 150 mg PO DAILY 11/02/17 09/29/18 History Budesonide/Formoterol Fumarate 2 puff INHALATION BID 09/24/18 09/29/18 History [Symbicort 160-4.5 Mcg Inhaler] traZODone HCL 50 mg PO HS 09/24/18 09/29/18 History Allergies Allergy/AdvReac Type Severity Reaction Status Date / Time Iodinated Contrast- Oral and Allergy Dyspnea Verified 09/29/18 10:15 IV Dye shellfish derived Allergy Dyspnea Verified 09/29/18 10:15 levofloxacin [From Levaquin] AdvReac GI upset Verified 09/29/18 10:15 povidone-iodine AdvReac Itching Verified 09/29/18 10:15 [From Betadine] soap [From Betadine] AdvReac Itching Verified 09/29/18 10:15 Surgical - Exam Vital Signs Temp Pulse Resp BP Pulse Ox 97.2 F L 77 18 157/74 94 L 09/29/18 10:42 09/29/18 10:42 09/29/18 10:42 09/29/18 10:42 09/29/18 10:42 - General well developed, well nourished, no distress - Eyes PERRL - ENT normal pinna - Neck no masses - Respiratory normal expansion - Cardiovascular Rhythm: regular - Abdomen Abdomen: soft, non tender Assessment and Plan Assessment: GERD. We'll perform laparoscopic Maria R fundoplication.
[2018-09-29] MEDS ORDERED: PROPOFOL 10 MG/ML 20 ML VIAL IV ONE (11:41)
[2018-09-29] MEDS ORDERED: MIDAZOLAM 2 MG/2 ML VIAL ONE (11:41)
[2018-09-29] MEDS ORDERED: LIDOCAINE 1% INJ 10MG/ML (20 ML MDV) ONE (11:41)
[2018-09-29] MEDS ORDERED: ROCURONIUM BROMIDE 10 MG/ML 10 ML VIAL IV ONE (11:41)
[2018-09-29] MEDS ORDERED: NEOSTIGMINE 1 MG/ML 10 ML VIAL ONE (11:41)
[2018-09-29] MEDS ORDERED: SUCCINYLCHOLINE CHLORIDE 100 MG/5 ML SYR IV ONE (11:41)
[2018-09-29] MEDS ORDERED: ePHEDrine SULFATE/0.9% NACL/PF 50 MG/5 ML SYRINGE IV ONE (11:41)
[2018-09-29] MEDS: ceFAZolin IN SWFI 2 GM/20 ML SYRINGE IVP ONE ×2 (11:41→11:45)
[2018-09-29] MEDS ORDERED: GLYCOPYRROLATE 0.2 MG/ML 2 ML VIAL ONE (11:41)
[2018-09-29] MEDS ORDERED: fentaNYL (PF) 50 MCG/ML 2 ML AMP ONE (11:41)
[2018-09-29] MEDS ORDERED: BUPIVACAINE (PF) 0.5% 30 ML VIAL SQ ONE (12:05)
[2018-09-29] MEDS ORDERED: LACTATED RINGERS 1,000 ML IV ONE (12:34)
[2018-09-29] MEDS ORDERED: HYDROmorphone 1 MG/ML 1 ML SYRINGE IVP PRN (12:49)
--- NOTE | 2018-09-29 12:49 | P.OP ---
Date of Procedure: 09/29/18 Preoperative Diagnosis: GERD Postoperative Diagnosis: GERD Procedure(s) Performed: Laparoscopic Maria R fundoplication Anesthesia: YAEL Surgeon: Mohan Bautista Estimated Blood Loss (ml): 5 Pathology: none sent Condition: stable Disposition: PACU Description of Procedure: Kiarahe patient was placed on the operating table in the supine position. The patient received general anesthesia. And was placed in dorsal lithotomy position. The patient was prepped and draped in the usual sterile fashion. The skin incision sites were anesthetized with 1% local Xylocaine. The skin was incised in the left periumbilical area and then using a blade less 5 mm trocar under direct visualization panel cavity was entered. After adequate insufflation the laparoscope was then placed into the peritoneal cavity. Next a 5 mm trochars placed in the right epigastric position. Another 5 millimeter trocar the right lateral position. Another 5 millimeter trocar in the left lateral position a 5 mm trocar is placed in the left epigastric position. And then the initial 5 mm trocar was exchanged for a 10 mm trocar. The left lateral lobe liver was retracted. The hernia was seen. The crural defect was then dissected using the Harmonic scissors device. A 360 crural dissection was performed the esophagus stomach was reduced back into the peritoneal Cavity. The crural defect was then closed using 2-0 Ethibond suture. Next the fundus of the stomach was mobilized using the [place] scissors device. and then a 58- [place] bougie dilator was placed oropharynx passed into the esophagus and stomach the fundal plication wrap was then performed by grasping the fundus post eriorly and bringing it around the esophagus and stomach fundoplication was then performed using 2-0 Ethibond suture. Care was taken that the fundal location rested over top of the intra-abdominal esophagus. There was no injury seen to the stomach or esophagus. The dilator was then withdrawn. The abdomen was irrigated there is no bleeding seen. The trochars were then withdrawn and then skin incision sites were closed using 3-0 Monocryl suture Steri-Strips are applied. Patient thought procedure well and sent to recovery room in stable condition.
[2018-09-29] MEDS: HYDROmorphone 0.5 MG/0.5 ML SYRINGE IVP PRN ×2 (13:05→13:11)
[2018-09-29] MEDS: KETOROLAC 30 MG/ML 1 ML VIAL IVP SCH ×4 (13:18→23:56)
[2018-09-29 15:30] VITALS: RESP 16
[2018-09-29] MEDS ORDERED: ALBUTEROL NEBULIZED 2.5 MG/3 ML INHALATION PRN (16:35)
--- NOTE | 2018-09-29 16:35 | FL ---
Single contrast esophagram EXAMINATION TYPE: FL esophagus cervic/pharynx DATE OF EXAM: 09/29/2018 4:26 PM COMPARISON: NONE CLINICAL HISTORY: Status post Hal fundoplication 35 secs fluoro. 25 ml of Thin Barium given orally due to iodine allergy. The patient ingested contrast without difficulty or delay. Noted are changes of Hal fundoplicatio n. There is no evidence for leak or obstruction. Small amount of residual contrast within the distal esophagus. IMPRESSION: Post-surgical change of Hal fundoplication without evidence for leak or obstruction.
[2018-09-29] MEDS: D5-0.45% NACL WITH KCL 20MEQ/L 1,000 ML IV SCH ×2 (16:38→23:58)
[2018-09-29] MEDS: METOCLOPRAMIDE 5 MG/ML 2 ML VIAL IVP SCH ×2 (18:50→23:56)
--- NOTE | 2018-09-29 19:25 | CONS ---
CONSULTATION DATE OF SERVICE: 09/29/2018 REASON FOR CONSULTATION: Advice regarding asthma and GERD being followed by Dr. Bautista. HISTORY OF PRESENT ILLNESS: This 58-year-old woman with a past history of asthma, GERD, DJD, history of cholecystectomy being followed by Dr. Cowart in the outpatient setting underwent laparoscopic Maria R fundoplication by Dr. Bautista. The patient complains of some minimal discomfort after surgery. Otherwise, there is no history of fever, rigors. No history of headache, loss of consciousness, seizures, chest pain, palpitations at this time. PAST MEDICAL HISTORY: Asthma, GERD, DJD, history of cholecystectomy, anxiety, depression, PTSD. MEDICATIONS: 1. Trazodone 50 mg p.o. q.h.s. 2. Lamictal 150 mg p.o. daily. 3. Klonopin 1.5 mg q.h.s. 4. Prevacid 30 mg p.o. daily. 5. Lexapro 20 mg p.o. daily. 6. Symbicort 160/4.5 two puffs b.i.d. 7. ProAir HFA 1-2 puffs q.6h p.r.n. ALLERGIES: IODINATED CONTRAST, SHELLFISH, LEVAQUIN, PROTAMINE, SULFA. FAMILY HISTORY: History of cancer in the family. SOCIAL HISTORY: History of smoking. No history of alcohol intake. REVIEW OF SYSTEMS: ENT: No diminished vision. No diminished hearing. CARDIOVASCULAR: No angina or palpitations. RESPIRATORY: As mentioned earlier. GASTROINTESTINAL: As mentioned earlier. GENITOURINARY: As mentioned earlier. CENTRAL NERVOUS SYSTEM: As mentioned earlier. ALLERGY/IMMUNOLOGY: As mentioned earlier. HEMATOLOGY/ONCOLOGY: No history of anemia. ENDOCRINE: No history of diabetes or hypothyroidism. CONSTITUTIONAL: As mentioned earlier. Dermatology: Negative. Rheumatology: Negative. Psychiatry: As mentioned earlier. PHYSICAL EXAMINATION: The patient is alert and oriented times three . Pulse is 80. Blood pressure 149/80, respirations 16, temperature 97.5, pulse ox 98% on room air. HEENT: Conjunctivae normal. Oral mucosa moist. NECK is no jugular venous distention. No carotid bruit. No lymph node enlargement. CARDIOVASCULAR: S1-S2. RESPIRATORY: Breath sounds diminished in the bases. A few scattered rhonchi and crackles. ABDOMEN: Soft. Status post surgery. LEGS: No edema. No swelling. CENTRAL NERVOUS SYSTEM: Higher functions as mentioned earlier. Moves all four extremities. No focal deficits. LYMPHATICS: No lymph nodes palpable in the neck, axillae or groin. SKIN: No ulcer. No rash. No bleeding. JOINTS: No active deforming arthropathy. LABS: The labs are glucose 193. The preop labs are reviewed. Hematology is normal and chemistry showed cholesterol 147. ASSESSMENT: 1. Status post laparoscopic Maria R fundoplication, for gastroesophageal reflux disease. 2. History of asthma. 3. History of degenerative joint disease. 4. History of cholecystectomy. 5. History of anxiety, depression, PTSD. 6. Obesity with body mass index 37.3. RECOMMENDATIONS AND DISCUSSION: In this 58-year-old woman who presented after surgery at this time I recommend to continue current medications, continue symptomatic treatment. I recommend resume the home medications including bronchodilators, incentive spirometry, DVT prophylaxis. We will also recommend proton pump inhibitors. We will follow the patient closely with you and the patient may be asked to follow with primary physician closely after discharge. Thank you, Dr. Bautista for letting us participate in the care of this patient. MMODL / IJN: [id number] /
[2018-09-29] MEDS: PANTOPRAZOLE 40 MG/10 ML VIAL IVP SCH (20:29)
[2018-09-29] MEDS ORDERED: clonazePAM 0.5 MG TAB PO SCH (21:00)
[2018-09-29] MEDS ORDERED: traZODone HCL 50 MG TAB PO SCH (21:00)
[2018-09-29] MEDS: SYMBICORT 160-4.5 MCG INHALER INHALATION SCH (22:29)
[2018-09-30] MEDS: METOCLOPRAMIDE 5 MG/ML 2 ML VIAL IVP SCH ×2 (05:52→11:41)
[2018-09-30] MEDS: KETOROLAC 30 MG/ML 1 ML VIAL IVP SCH ×2 (05:52→11:41)
[2018-09-30] MEDS: D5-0.45% NACL WITH KCL 20MEQ/L 1,000 ML IV SCH (05:52)
[2018-09-30] MEDS: SYMBICORT 160-4.5 MCG INHALER INHALATION SCH (08:05)
[2018-09-30] MEDS: PANTOPRAZOLE 40 MG/10 ML VIAL IVP SCH (08:32)
[2018-09-30] MEDS ORDERED: lamoTRIgine 100 MG TAB PO SCH (09:00)
[2018-09-30] MEDS ORDERED: ESCITALOPRAM 20 MG TAB PO SCH (09:00)
[2018-09-30] MEDS ORDERED: ENOXAPARIN 40 MG/0.4 ML SYRINGE SQ SCH (09:00)
[2018-09-30 09:22] VITALS: BP 153/81; PULSE 76; TEMP 98.3
--- NOTE | 2018-09-30 11:03 | P.DS ---
Providers Date of admission: 09/30/18 05:51 Expected date of discharge: 09/30/18 Attending physician: Mohan Bautista Consults: 09/29/18 12:49 Consult Physician Routine Consulting Provider: Macarena Peter Consult Reason/Comments: Management Do you want consulting provider notified?: Yes Primary care physician: Stated None Hospital Course: 58-year-old female who underwent laparoscopic Maria R fundoplication on 09/29/[address] Bautista. Patient is doing well postoperatively without any immediate complications. She is tolerating liquid diet. Denies nausea. Pain is controlled. Vital signs are stable. She is stable for discharge home today. Please see EMR for further hospital course details. Discharge Diagnosis: 1. GERD, s/p laparoscopic Maria R fundoplication Nurse practitioner note has been reviewed by physician. Signing provider agrees with the documented findings, assessment, and plan of care. Plan - Discharge Summary Discharge Rx Participant: Yes New Discharge Prescriptions: New Hydrocodone/Acetaminophen [[place] 5-325] 1 tab PO Q4HR PRN 3 Days #18 tab PRN Reason: Pain No Action Albuterol Sulfate [Proair Hfa] 1 - 2 puff INHALATION RT-Q6H PRN PRN Reason: Dyspnea clonazePAM [KlonoPIN] 1.5 mg PO HS lamoTRIgine [LaMICtal] 150 mg PO DAILY Lansoprazole [Prevacid] 30 mg PO DAILY Escitalopram [Lexapro] 20 mg PO DAILY Budesonide/Formoterol Fumarate [Symbicort 160-4.5 Mcg Inhaler] 2 puff INHALATION RT-BID traZODone HCL 50 mg PO HS Discharge Medication List Albuterol Sulfate [Proair Hfa] 1 - 2 puff INHALATION RT-Q6H PRN 11/02/17 [History] Escitalopram [Lexapro] 20 mg PO DAILY 11/02/17 [History] Lansoprazole [Prevacid] 30 mg PO DAILY 11/02/17 [History] clonazePAM [KlonoPIN] 1.5 mg PO HS 11/02/17 [History] lamoTRIgine [LaMICtal] 150 mg PO DAILY 11/02/17 [History] Budesonide/Formoterol Fumarate [Symbicort 160-4.5 Mcg Inhaler] 2 puff INHALATION RT-BID 09/24/18 [History] traZODone HCL 50 mg PO HS 09/24/18 [History] Hydrocodone/Acetaminophen [[place] 5-325] 1 tab PO Q4HR PRN 3 Days #18 tab 09/30/18 [Rx] Follow up Appointment(s)/Referral(s): Mohan Bautista MD [STAFF PHYSICIAN] - 1 Week
[2018-09-30 13:05] VITALS: BMI 37.3
--- NOTE | 2018-09-30 14:12 | P.PN ---
Subjective No overnight events patient is clinically doing well is being discharged today which is okay from medical perspective medication reconciliation was reviewed. Constitutional: Denied any fatigue denied any fever. Cardio vascular: denied any chest pain, palpitations Gastrointestinal denied any nausea vomiting Pulmonary: Denied any shortness of breath cough Neurologic denied any new focal deficits All inpatient medications were reviewed and appropriate changes in these medications as dictated in the interval history and assessment and plan. Objective - Vital Signs Vital signs: Vital Signs Temp 98.3 F 09/30/18 08:15 Pulse 76 09/30/18 11:55 Resp 16 09/30/18 08:15 BP 153/81 09/30/18 08:15 Pulse Ox 95 09/30/18 11:55 Intake & Output 09/29/18 09/30/18 09/30/18 18:59 06:59 18:59 Intake Total 1830 600 Output Total 665 900 Balance 1165 -900 600 Weight 117.934 kg Intake: IV 1800 Oral 30 600 Output: Urine 660 900 Estimated Blood Loss 5 Other: # Voids 1 1 2 - Exam PHYSICAL EXAMINATION: GENERAL: The patient is alert and oriented x3, not in any acute distress. Well developed, well nourished. HEENT: Pupils are round and equally reacting to light. EOMI. No scleral icterus. No conjunctival pallor. Normocephalic, atraumatic. No pharyngeal erythema. No thyromegaly. CARDIOVASCULAR: S1 and S2 present. No murmurs, rubs, or gallops. PULMONARY: Chest is clear to auscultation, no wheezing or crackles. ABDOMEN: Soft, nontender, nondistended, normoactive bowel sounds. No palpable organomegaly. Surgical site areas appear to be clean MUSCULOSKELETAL: No joint swelling or deformity. EXTREMITIES: No cyanosis, clubbing, or pedal edema. NEUROLOGICAL: Gross neurological examination did not reveal any focal deficits. SKIN: No rashes. Assessment and Plan Plan: Chronic mild intermittent asthma without any acute exacerbation -Status post laparoscopic Maria R fundoplication Depression and PTSD No further recommendations from medicine patient can be discharged from medical perspective
== END 2018-09-30 12:45 | disposition home or self-care (01) ==
LOC: OR 09:51 → 6PED 12:48 → OR 09-30 05:50 → 6PED 09-30 05:51
PROVIDERS: ADMIT Surgery; ATTEND Surgery
DX: K21.0 Gastro-esophageal reflux disease with esophagitis (principal); J45.20 Mild intermittent asthma, uncomplicated; I10 Essential (primary) hypertension; M19.90 Unspecified osteoarthritis, unspecified site; K59.00 Constipation, unspecified; F43.10 Post-traumatic stress disorder, unspecified; F41.9 Anxiety disorder, unspecified; F32.9 Major depressive disorder, single episode, unspecified; F39 Unspecified mood [affective] disorder; Z90.49 Acquired absence of other specified parts of digestive tract; Z87.891 Personal history of nicotine dependence; E66.9 Obesity, unspecified; Z68.37 Body mass index [BMI] 37.0-37.9, adult; Z79.51 Long term (current) use of inhaled steroids; Z79.899 Other long term (current) drug therapy; Z91.013 Allergy to seafood; Z88.1 Allergy status to other antibiotic agents; Z91.048 Other nonmedicinal substance allergy status; Z91.041 Radiographic dye allergy status; Z88.2 Allergy status to sulfonamides; Z80.9 Family history of malignant neoplasm, unspecified
CPT/HCPCS: 74210; 43280; G0378; J2250; J1644; J2710; J2765 ×2; J2405; J2001; J1650; J3010; J1885 ×2; J1170 ×2; J1100; J0330; J2704; C9113 ×2; J0690

== ENCOUNTER 2018-12-23 15:38 | Observation (INO) | payer OTHER ==
[2018-12-23] MEDS ORDERED: KETOROLAC 30 MG/ML 1 ML VIAL IVP STA (15:46)
[2018-12-23 16:19] LABS: INR 0.9 (<1.2); Partial Thromboplastin Time 24.2 sec (22.0-30.0); Prothrombin Time 9.9 sec (9.0-12.0)
[2018-12-23 16:22] LABS: ALT 9 U/L (9-52); AST 13 U/L (14-36); African American GFR (CKD) >90 (>60 ml/min/1.73 sqM); Alkaline Phosphatase 71 U/L (38-126); Anion Gap 8 mmol/L; Blood Urea Nitrogen 8 mg/dL (7-17); Calcium 9.3 mg/dL (8.4-10.2); Carbon Dioxide 24 mmol/L (22-30); Chloride 110 mmol/L (98-107); Creatine Kinase 74 U/L (30-135); Glucose 104 mg/dL (74-99); Magnesium 2.1 mg/dL (1.6-2.3); Potassium 3.8 mmol/L (3.5-5.1); Sodium 142 mmol/L (137-145); Total Bilirubin 0.2 mg/dL (0.2-1.3); Total Protein 6.6 g/dL (6.3-8.2)
[2018-12-23 16:23] LABS: D-Dimer 0.81 mg/L FEU (<0.60)
--- NOTE | 2018-12-23 16:27 | ED ---
Chest Pain HPI - General Chief Complaint: Chest Pain Stated Complaint: Chest Pain Time Seen by Provider: 12/23/18 15:38 Source: patient, EMS, RN notes reviewed Mode of arrival: EMS - History of Present Illness Initial Comments: This is a 58-year-old female who presents by EMS with complaints of chest pain started this afternoon. She did state it radiates to the left jaw and she had numbness going on the left arm with pain when she moves her left arm. She has some lightheadedness and dizziness yesterday. She also some palpitations. She also was noted by paramedics have elevated blood pressure. She does have a history of hypertension. There is a family history of heart disease. No recent fevers chills nausea vomiting sweats. Of note her is really worked up for a heart issues. This is per paramedics. Her self does not smoke MD Complaint: chest pain - Related Data Home Medications Medication Instructions Recorded Confirmed Albuterol Sulfate [Proair Hfa] 1 - 2 puff INHALATION RT-Q6H PRN 11/02/17 12/23/18 Escitalopram [Lexapro] 20 mg PO DAILY 11/02/17 12/23/18 clonazePAM [KlonoPIN] 1.5 mg PO HS 11/02/17 12/23/18 lamoTRIgine [LaMICtal] 150 mg PO DAILY 11/02/17 12/23/18 Budesonide/Formoterol Fumarate 2 puff INHALATION RT-BID 09/24/18 12/23/18 [Symbicort 160-4.5 Mcg Inhaler] traZODone HCL 50 mg PO HS 09/24/18 12/23/18 Aspirin [Adult Low Dose Aspirin EC] 81 mg PO DAILY PRN 12/23/18 12/23/18 Allergies Allergy/AdvReac Type Severity Reaction Status Date / Time povidone-iodine Allergy Itching Verified 12/23/18 15:50 [From Betadine] soap [From Betadine] Allergy Itching Verified 12/23/18 15:50 Iodinated Contrast- Oral and AdvReac Dyspnea Verified 12/23/18 15:50 IV Dye levofloxacin [From Levaquin] AdvReac GI upset Verified 12/23/18 15:50 shellfish derived AdvReac Dyspnea Verified 12/23/18 15:50 Review of Systems ROS Statement: Those systems with pertinent positive or pertinent negative responses have been documented in the HPI. ROS Other: All systems not noted in ROS Statement are negative. EKG Findings - EKG Results: EKG: interpreted by MISSY, sinus rhythm (Normal sinus rhythm of 68. Interval 172 QRS duration 108 QT since QTC 410/435) Past Medical History Past Medical History: Asthma, GERD/Reflux, Osteoarthritis (OA) Additional Past Medical History / Comment(s): STATES OCCASIONAL BLOOD IN STOOL, STATES HAS HX OF ADHESIONS, CONSTIPATION, hypoglycemia, hx. ulcers History of Any Multi-Drug Resistant Organisms: None Reported Past Surgical History: Section, Cholecystectomy, Hysterectomy, Joint Replacement, Orthopedic Surgery Additional Past Surgical History / Comment(s): C/S x2, arthroscopy knee, laparoscopy, RT KNEE REPLACEMENT Past Anesthesia/Blood Transfusion Reactions: No Reported Reaction Additional Past Anesthesia/Blood Transfusion Reaction / Comment(s): headache after spinal, states does not agree with me. Past Psychological History: Anxiety, Depression, PTSD Smoking Status: Never smoker Past Alcohol Use History: None Reported Past Drug Use History: None Reported - Past Family History Mother Family Medical History: Cancer Father Family Medical History: Cancer General Exam - General Exam Comments Initial Comments: This is a well-developed well-nourished awake alert oriented 3 female General appearance: alert, anxious Head exam: Present: atraumatic, normocephalic, normal inspection Eye exam: Present: normal appearance, PERRL, EOMI. Absent: scleral icterus, conjunctival injection, periorbital swelling ENT exam: Present: normal exam, mucous membranes moist Neck exam: Present: normal inspection, full ROM, other (No stridor JVD or bruits). Absent: tenderness, meningismus, lymphadenopathy Respiratory exam: Present: normal lung sounds bilaterally, chest wall tenderness (Tenderness palpation of the left costal sternal margin costochondral margin as well as the pectoralis muscle left anterior shoulder.). Absent: respiratory distress, wheezes, rales, rhonchi, stridor Cardiovascular Exam: Present: regular rate, normal rhythm, normal heart sounds. Absent: systolic murmur, diastolic murmur, rubs, gallop, clicks GI/Abdominal exam: Present: soft, normal bowel sounds. Absent: distended, tenderness, guarding, rebound, rigid Extremities exam: Present: normal inspection, full ROM, normal capillary refill. Absent: tenderness, pedal edema, joint swelling, calf tenderness Back exam: Present: normal inspection Neurological exam: Present: alert, oriented X3, CN II-XII intact Psychiatric exam: Present: normal affect, normal mood Skin exam: Present: warm, dry, intact, normal color. Absent: rash Course Vital Signs 12/23/18 12/23/18 15:42 17:47 Temperature 98.9 F Pulse Rate 70 Respiratory 17 17 Rate Blood Pressure 165/86 164/85 O2 Sat by Pulse 95 95 Oximetry Chest Pain MDM - MDM Patient still has some chest pain he did state she has some relief from the nitroglycerin given earlier this is an atypical presentation of this and the patient does have elevated d-dimer and is highly ALLERGIC to contrast she states that he with premedication she has trouble. I did discuss the case with Toya who is covering Dr. Peter. Patient will be admitted with cardiology workup and VQ scan Disposition Clinical Impression: Chest pain, Elevated d-dimer, Chest wall pain Disposition: ADMITTED IP TO THIS HOSP Condition: Fair Referrals: Chago Cowart MD [Primary Care Provider] - 1-2 days
[2018-12-23 16:32] LABS: HGB 12.9 gm/dL (11.4-16.0); MCH 29.9 pg (25.0-35.0); MCHC 34.1 g/dL (31.0-37.0); MCV 87.8 fL (80.0-100.0); Mean Platelet Volume 6.5; Platelet Count 276 k/uL (150-450); RBC 4.33 m/uL (3.80-5.40); RDW 13.2 % (11.5-15.5)
--- NOTE | 2018-12-23 16:40 | XR ---
EXAMINATION: XR chest 2V DATE AND TIME: 12/23/2018 4:33 PM CLINICAL INDICATION: PHH; Chest Pain TECHNIQUE: Departmental protocol COMPARISON: None FINDINGS: The overlying soft tissues are prominent. Lungs appear to be well-expanded and clear. The pleural spaces are negative. The cardiac silhouette is not enlarged. The remainder of the mediastinal silhouette is unremarkable. The skeletal structures and soft tissues are negative for acute findings. IMPRESSION: No acute process.
[2018-12-23 17:10] LABS: Eosinophils # (M) 0.24 k/uL (0-0.7); Lymphocytes # (M) 1.92 k/uL (1.0-4.8); Neutrophils % (M) 54 %; Nucleated Red Blood Cells 0 /100 WBC (0-0); Total Cells Counted 100
[2018-12-23] MEDS ORDERED: MORPHINE SULFATE 4 MG/ML SYRINGE IVP STA (17:46)
[2018-12-23] MEDS ORDERED: HEPARIN SODIUM,PORCINE 5,000 UNIT/ML 1 ML VIAL IV ONE (18:06)
[2018-12-23] MEDS ORDERED: NITROGLYCERIN SL TABS 0.4 MG TAB SUBLINGUAL PRN (18:06)
[2018-12-23] MEDS ORDERED: ALBUTEROL NEBULIZED 2.5 MG/3 ML INHALATION PRN (18:09)
[2018-12-23] MEDS ORDERED: HEPARIN SOD,PORK IN 0.45% NACL 25,000 UNIT in 0.45% NACL 1 250ML.BAG IV SCH (18:15)
[2018-12-23] MEDS ORDERED: MORPHINE SULFATE 4 MG/ML SYRINGE IVP PRN (18:15)
[2018-12-23] MEDS: SYMBICORT 160-4.5 MCG INHALER INHALATION SCH (19:25)
[2018-12-23 19:36] VITALS: RESP 18
[2018-12-23] MEDS ORDERED: traZODone HCL 50 MG TAB PO SCH (21:00)
--- NOTE | 2018-12-23 21:11 | NM ---
EXAMINATION TYPE: NM pul vent and perfuse DATE OF EXAM: 12/23/2018 COMPARISON: Chest radiographs 12/23/2018 at 4:26 PM HISTORY: Elevated d-dimer, chest pain TECHNIQUE: Utilizing inhalation of 42.4 mCi Tc 99m DTPA aerosol and intravenous injection of 4.4 mCi of Tc 99m MAA, ventilation and perfusion images are acquired post injection in multiple projections. FINDINGS: There is only subtle heterogeneity in the distribution of the radiopharmaceutical activity throughout the lungs on the perfusion images, and mild heterogeneity on the lung ventilation images. There is no evidence of mismatched defects. IMPRESSION: Low probability for the diagnosis of pulmonary embolism.
[2018-12-23] MEDS: clonazePAM 0.5 MG TAB PO SCH ×2 (21:36→22:22)
[2018-12-23 21:51] VITALS: BMI 37.3
[2018-12-24] MEDS: NITROGLYCERIN OINT 1 INCH/GM PACKET TOPICAL SCH ×2 (00:17→06:02)
[2018-12-24] MEDS ORDERED: HEPARIN SODIUM,PORCINE 5,000 UNIT/ML 1 ML VIAL IV PRN (01:23)
[2018-12-24 05:05] LABS: Cholesterol 220 mg/dL (<200); HDL Cholesterol 43 mg/dL (40-60); LDL Cholesterol,Calculated 150 mg/dL (0-99); Triglycerides 134 mg/dL (<150)
[2018-12-24] MEDS ORDERED: DOBUTamine DRIP for NUC MED 500 MG in DEXTROSE/WATER 1 250ML.BAG IV ONE (07:36)
[2018-12-24] MEDS: SYMBICORT 160-4.5 MCG INHALER INHALATION SCH ×2 (08:14→18:33)
[2018-12-24] MEDS ORDERED: ESCITALOPRAM 20 MG TAB PO SCH (09:00)
[2018-12-24] MEDS ORDERED: ASPIRIN 325 MG TAB PO SCH (09:00)
[2018-12-24] MEDS ORDERED: lamoTRIgine 100 MG TAB PO SCH (09:00)
--- NOTE | 2018-12-24 11:19 | ECHOF ---
Referral Reason:cp MEASUREMENTS -------- HEIGHT: 177.8 cm WEIGHT: 117.9 kg BP: RVIDd: 3.7 cm (< 3.3) IVSd: 1.3 cm (0.6 - 1.1) LVIDd: 3.7 cm (3.9 - 5.3) LVPWd: 1.3 cm (0.6 - 1.1) IVSs: 1.8 cm LVIDs: 2.6 cm LVPWs: 1.8 cm LA Diam: 3.7 cm (2.7 - 3.8) LAESV Index (A-L): 27.42 ml/m Ao Diam: 3.2 cm (2.0 - 3.7) AV Cusp: 2.3 cm (1.5 - 2.6) MV EXCURSION: 17.354 mm (> 18.000) MV EF SLOPE: 31 mm/s (70 - 150) EPSS: 0.3 cm MV E Toro: 0.78 m/s MV DecT: 211 ms MV A Toro: 0.66 m/s MV E/A Ratio: 1.18 RAP: 15.00 mmHg RVSP: 33.58 mmHg FINDINGS -------- Sinus rhythm. This was a technically adequate study. The left ventricular size is normal. There is mild concentric left ventricular hypertrophy. Overa ll left ventricular systolic function is normal with, an EF between 55 - 60 %. The right ventricle is mildly enlarged. Normal LA size by volume 22+/-6 ml/m2. The right atrium is normal in size. Trace to mild aortic regurgitation. Mild mitral annular calcification present. Mild mitral regurgitation is present. Mild tricuspid regurgitation present. Right ventricular systolic pressure is normal at < 35 mmHg. The pulmonic valve was not well visualized. The aortic root size is normal. The inferior vena cava is dilated with no significant inspiratory collapse which is consistent estima liberty right atrial pressure of >15 mmHg. There is no pericardial effusion. CONCLUSIONS -------- 1. Sinus rhythm. 2. This was a technically adequate study. 3. The left ventricular size is normal. 4. There is mild concentric left ventricular hypertrophy. 5. The right ventricle is mildly enlarged. 6. Normal LA size by volume 22+/-6 ml/m2. 7. The right atrium is normal in size. 8. Trace to mild aortic regurgitation. 9. Mild mitral annular calcification present. 10. Mild mitral regurgitation is present. 11. Mild tricuspid regurgitation present. 12. Right ventricular systolic pressure is normal at < 35 mmHg. 13. The pulmonic valve was not well visualized. 14. The aortic root size is normal. 15. The inferior vena cava is dilated with no significant inspiratory collapse which is consistent es timated right atrial pressure of >15 mmHg. 16. There is no pericardial effusion. GLASS FURNACE TENDER: Siomara Escobar RDCS
[2018-12-24] MEDS ORDERED: ATORVASTATIN 20 MG TAB PO SCH (11:58)
[2018-12-24 12:12] VITALS: PULSE 80; TEMP 97.5
[2018-12-24 12:24] VITALS: BP 142/66
--- NOTE | 2018-12-24 13:22 | ECHOS ---
STRESS ECHOCARDIOGRAM DOBUTAMINE ECHO DATE OF SERVICE: 12/24/2018 INDICATIONS: Chest pain. MEDICATIONS: BASELINE HEART RATE: 59 BASELINE BLOOD PRESSURE: 191/98 MAXIMUM HEART RATE: 140 MAXIMUM BLOOD PRESSURE: 216/84 85% MPHR: 139 100% MPHR: 164 METS: MAXIMUM STAGE REACHED: TOTAL EXERCISE TIME: CLINICAL INFORMATION: Baseline EKG revealed normal sinus rhythm without significant ST-T changes. With dobutamine administration, the patient's heart rate went up to 140 beats per minute. There were nonspecific upsloping ST-segment changes noted. No evidence of ischemia was noted. No arrhythmia was noted. This is a negative dobutamine stress test by EKG criteria. Baseline echo images revealed normal wall motion wall thickening of all segments. With dobutamine administration as per protocol, there was progressive increase in contractility noted. There is no evidence to suggest any ischemia on this study. FINAL IMPRESSION: 1. By EKG criteria, this is an unremarkable dobutamine stress test. 2. Normal dobutamine stress echocardiogram without any evidence of ischemia. 3. There was no arrhythmia. MMODL / IJN: [id number] /
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
--- NOTE | 2018-12-24 13:46 | P.DS ---
Providers Date of admission: 12/23/18 18:06 Attending physician: Macarena Peter Consults: 12/23/18 18:06 Consult Physician Urgent Consulting Provider: Zeeshan Manning Consult Reason/Comments: Chest pain Do you want consulting provider notified?: Yes Primary care physician: Chago Cowart [facility] Course: As mentioned in HPI Patient Condition at Discharge: Fair Plan - Discharge Summary New Discharge Prescriptions: New Atorvastatin [Lipitor] 20 mg PO DAILY #90 tab Continue Albuterol Sulfate [Proair Hfa] 1 - 2 puff INHALATION RT-Q6H PRN PRN Reason: Dyspnea clonazePAM [KlonoPIN] 1.5 mg PO HS lamoTRIgine [LaMICtal] 150 mg PO DAILY Escitalopram [Lexapro] 20 mg PO DAILY Budesonide/Formoterol Fumarate [Symbicort 160-4.5 Mcg Inhaler] 2 puff INHALATION RT-BID traZODone HCL 50 mg PO HS Aspirin [Adult Low Dose Aspirin EC] 81 mg PO DAILY PRN PRN Reason: Chest Pain Discharge Medication List Albuterol Sulfate [Proair Hfa] 1 - 2 puff INHALATION RT-Q6H PRN 11/02/17 [History] Escitalopram [Lexapro] 20 mg PO DAILY 11/02/17 [History] clonazePAM [KlonoPIN] 1.5 mg PO HS 11/02/17 [History] lamoTRIgine [LaMICtal] 150 mg PO DAILY 11/02/17 [History] Budesonide/Formoterol Fumarate [Symbicort 160-4.5 Mcg Inhaler] 2 puff INHALATION RT-BID 09/24/18 [History] traZODone HCL 50 mg PO HS 09/24/18 [History] Aspirin [Adult Low Dose Aspirin EC] 81 mg PO DAILY PRN 12/23/18 [History] Atorvastatin [Lipitor] 20 mg PO DAILY #90 tab 12/24/18 [Rx] Follow up Appointment(s)/Referral(s): Aquiles Mcdonald MD [STAFF PHYSICIAN] - 01/07/19 8:45 am Chago Cowart MD [Primary Care Provider] - 3 Days Discharge Disposition: HOME SELF-CARE
--- NOTE | 2018-12-24 14:07 | CONS ---
CONSULTATION Danielle Shepard is a 58-year-old, obese lady who was admitted to the hospital. She sees Dr. Cowart in the outpatient setting. She came into the hospital with complaints of discomfort in the chest. The quality of the discomfort seems somewhat atypical. This occurred when she was resting. She had pressure in the chest and there was some left jaw discomfort. She felt some numbness in the left arm, then had some pleuritic component. However, she also had some associated lightheadedness. She was hypertensive when the paramedics arrived. She was brought into the hospital. No further issue. She is comfortable, resting. Her troponins are normal. She is not a smoker. She has obesity and seems to have borderline hypertension. Apparently she had a stress test more than 3 years ago that was negative. She is resting comfortably without symptoms at the time of my evaluation. PAST MEDICAL HISTORY: 1. Bronchial asthma. 2. Gastroesophageal reflux disease. 3. Osteoarthritis. She is status post cholecystectomy, hysterectomy, and arthroscopic surgery of the knee. MEDICATIONS: Medications at home include albuterol inhaler, Lexapro, Klonopin, Lamictal, trazodone. ALLERGIES: She is allergic to IODINE and also some LEVAQUIN. After she arrived to the hospital her laboratory data suggested an abnormal D-dimer of 0.81 and she went on to have a lung perfusion scan which revealed a low probability. The patient is completely free of chest pain, resting comfortably without symptoms. PHYSICAL EXAMINATION: On examination, blood pressure is 140/70, pulse rate is 70 per minute regular. HEENT: Unremarkable. Fundus was not examined by me. Neck is supple. No JVD. I do not hear a carotid bruit. There is no thyromegaly. Heart exam reveals S1, S2 heard normally but distantly. Lungs are clear. Abdomen is soft, nontender. Lower extremities reveal normal pulses. No edema. Central nervous system is normal. EKG revealed sinus mechanism, no acute changes. Laboratory data revealed unremarkable troponins. IMPRESSION: 1. Atypical chest pain. 2. Obesity. 3. Hyperlipidemia. RECOMMENDATIONS: I am recommending a dobutamine echo and if this is normal she can be discharged. I will initiate her on statin agent at a low dose, 20 mg of atorvastatin is advised. Nitroglycerin can be discontinued. I discussed my thoughts in detail with the patient. If stress test is normal, she can be discharged. Thank you very much for the consult. NOÉ / CHINN: [id number] /
[2018-12-24] MEDS ORDERED: IBUPROFEN 800 MG TAB PO STA (14:46)
== END 2018-12-24 19:00 | disposition home or self-care (01) ==
LOC: EC 15:38 → 1SOBS 18:06
PROVIDERS: ADMIT Hospitalist; ATTEND Hospitalist
DX: R07.89 Other chest pain (principal); R79.89 Other specified abnormal findings of blood chemistry; R20.0 Anesthesia of skin; R00.2 Palpitations; R42 Dizziness and giddiness; K21.9 Gastro-esophageal reflux disease without esophagitis; E78.5 Hyperlipidemia, unspecified; I10 Essential (primary) hypertension; J45.909 Unspecified asthma, uncomplicated; F32.9 Major depressive disorder, single episode, unspecified; M19.90 Unspecified osteoarthritis, unspecified site; K59.00 Constipation, unspecified; F43.10 Post-traumatic stress disorder, unspecified; E66.9 Obesity, unspecified; Z68.37 Body mass index [BMI] 37.0-37.9, adult; Z79.899 Other long term (current) drug therapy; Z79.51 Long term (current) use of inhaled steroids; Z79.82 Long term (current) use of aspirin; Z88.1 Allergy status to other antibiotic agents; Z91.041 Radiographic dye allergy status; Z91.013 Allergy to seafood; Z88.8 Allergy status to other drugs, medicaments and biological substances; Z91.048 Other nonmedicinal substance allergy status; Z87.19 Personal history of other diseases of the digestive system; Z90.710 Acquired absence of both cervix and uterus; Z96.651 Presence of right artificial knee joint; Z90.49 Acquired absence of other specified parts of digestive tract; Z86.39 Personal history of other endocrine, nutritional and metabolic disease; Z80.9 Family history of malignant neoplasm, unspecified; Z82.49 Family history of ischemic heart disease and other diseases of the circulatory system
CPT/HCPCS: 96366 ×2; 96376 ×3; 96365; 96375; 99285; 36415; 94640; 93005; 93306; 93351; 85379; 80061; 80053; 82550; 83690; 83735; 84484 ×2; 85025; 85610; 85730 ×2; 71046; 78582; G0378 ×2; A9540; A9567; J1250; J2270; J1644 ×3; J1885

== ENCOUNTER 2019-03-15 07:56 | Day surgery (SDC) | payer OTHER ==
[2019-03-11 15:09] VITALS: BMI 35.9
[~2019-03-15 07:56] MED LIST changes: -FAMOTIDINE 20 MG/2 ML VIAL IV PRN; -HEPARIN SODIUM,PORCINE 5,000 UNIT/ML 1 ML VIAL SQ ONE; -METOCLOPRAMIDE 5 MG/ML 2 ML VIAL IVP PRN; -ONDANSETRON 4 MG/2 ML VIAL IVP PRN; -SCOPOLAMINE 1.5MG/72HR PATCH TRANSDERM ONE
[2019-03-15 08:38] LABS: Glucose,Whole Blood 92 mg/dL (75-99)
[2019-03-15 08:43] VITALS: RESP 16; TEMP 98.2
[2019-03-15] MEDS ORDERED: LIDOCAINE 1% INJ 10MG/ML (20 ML MDV) ONE (09:01)
[2019-03-15] MEDS ORDERED: PROPOFOL 10 MG/ML 20 ML VIAL IV ONE (09:01)
[2019-03-15 09:32] LABS: Cholesterol 238 mg/dL (<200); HDL Cholesterol 61 mg/dL (40-60); LDL Cholesterol,Calculated 156 mg/dL (0-99); Triglycerides 106 mg/dL (<150)
[2019-03-15 09:33] VITALS: BP 143/89; PULSE 67
--- NOTE | 2019-03-31 15:50 | P.GSHP ---
History of Present Illness H&P Date: 03/15/19 Chief Complaint: Dysphagia 59 year old female with a history of GERD who has complaints of dysphasia over the past few months. Denies abdominal pain. Denies nausea or vomiting. - Review of Systems Comment: Those systems with pertinent positive or pertinent negative responses have been documented in the HPI Past Medical History Past Medical History: Asthma, Chest Pain / Angina, GERD/Reflux, GI Bleed, Hyperlipidemia, Osteoarthritis (OA) Additional Past Medical History / Comment(s): STATES OCCASIONAL BLOOD IN STOOL, STATES HAS HX OF ADHESIONS, CONSTIPATION, hypoglycemia, hx. ulcers History of Any Multi-Drug Resistant Organisms: None Reported Past Surgical History: Section, Cholecystectomy, Hernia Repair, Hysterectomy, Joint Replacement, Orthopedic Surgery Additional Past Surgical History / Comment(s): C/S x2, arthroscopy knee, laparoscopy, RT KNEE REPLACEMENT Past Anesthesia/Blood Transfusion Reactions: No Reported Reaction, Motion Sickness Additional Past Anesthesia/Blood Transfusion Reaction / Comment(s): headache after spinal, states does not agree with me. Smoking Status: Never smoker - Past Family History Mother Family Medical History: Cancer Father Family Medical History: Cancer Medications and Allergies Home Medications Medication Instructions Recorded Confirmed Type Albuterol Sulfate [Proair Hfa] 1 - 2 puff INHALATION RT-Q6H PRN 11/02/17 03/15/19 History Escitalopram [Lexapro] 20 mg PO HS 11/02/17 03/15/19 History clonazePAM [KlonoPIN] 1.5 mg PO HS 11/02/17 03/15/19 History lamoTRIgine [LaMICtal] 150 mg PO HS 11/02/17 03/15/19 History Budesonide/Formoterol Fumarate 2 puff INHALATION RT-BID 09/24/18 03/15/19 History [Symbicort 160-4.5 Mcg Inhaler] traZODone HCL 50 mg PO HS 09/24/18 03/15/19 History Aspirin [Adult Low Dose Aspirin EC] 81 mg PO DAILY 12/23/18 03/11/19 History Atorvastatin [Lipitor] 20 mg PO DAILY #90 tab 12/24/18 03/15/19 Rx Losartan/Hydrochlorothiazide 1 tab PO DAILY 03/11/19 03/15/19 History [Hyzaar 50-12.5 Tablet] Allergies Allergy/AdvReac Type Severity Reaction Status Date / Time povidone-iodine Allergy Itching Verified 03/15/19 08:45 [From Betadine] soap [From Betadine] Allergy Itching Verified 03/15/19 08:45 Iodinated Contrast Media AdvReac Dyspnea Verified 03/15/19 08:45 [Iodinated Contrast- Oral and IV Dye] levofloxacin [From Levaquin] AdvReac GI upset Verified 03/15/19 08:45 shellfish derived AdvReac Dyspnea Verified 03/15/19 08:45 Surgical - Exam Vital Signs Temp Pulse Resp BP Pulse Ox 98.2 F 70 16 144/78 96 03/15/19 08:39 03/15/19 08:39 03/15/19 08:39 03/15/19 08:39 03/15/19 08:39 - General well developed, well nourished, no distress - Eyes PERRL - Respiratory normal expansion - Cardiovascular Rhythm: regular Heart Sounds: normal: S1, S2 - Abdomen Abdomen: soft, non tender - Integumentary no rash - Musculoskeletal normal gait - Psychiatric oriented to time, oriented to person, oriented to place Assessment and Plan Assessment: 1. Dysphasia 2. History of GERD Plan: Patient to undergo EGD today with Dr. Bautista
--- NOTE | 2019-04-12 16:57 | P.OP ---
Date of Procedure: 03/15/19 Preoperative Diagnosis: Dysphagia Postoperative Diagnosis: Mild antral gastritis Mild esophagitis Procedure(s) Performed: EGD Anesthesia: MAC Surgeon: Mohan Bautista Pathology: other (Antrum, esophagus) Condition: stable Disposition: PACU Description of Procedure: The patient's placed on the endoscopy table in the lateral position. She received IV sedation. The gastroscope placed oropharynx and passed in the esophagus and into the stomach. Scope then placed through the pylorus. The first and second portion of the duodenum appeared normal. The scope was then brought back the antrum and this appeared mildly inflamed. A biopsies performed. Scope was then retroflexed and the remainder of the stomach appeared normal. There is no significant hiatal hernia. Patient previous fundoplication wrap. This appeared to be in the appropriate position. The GE junction was at 40 cm the distal esophagus appeared minimally inflamed a biopsies performed the proximal esophagus. Normal. Scope was withdrawn for patient.
== END 2019-03-15 10:27 | disposition home or self-care (01) ==
LOC: ORWHC2ENDO 07:56
PROVIDERS: ATTEND Surgery
DX: K21.0 Gastro-esophageal reflux disease with esophagitis (principal); K29.50 Unspecified chronic gastritis without bleeding; E78.2 Mixed hyperlipidemia; M19.90 Unspecified osteoarthritis, unspecified site; J45.909 Unspecified asthma, uncomplicated; Z88.8 Allergy status to other drugs, medicaments and biological substances; Z91.048 Other nonmedicinal substance allergy status; Z91.041 Radiographic dye allergy status; Z88.1 Allergy status to other antibiotic agents; Z91.013 Allergy to seafood; Z87.19 Personal history of other diseases of the digestive system; Z79.899 Other long term (current) drug therapy; Z79.51 Long term (current) use of inhaled steroids; Z79.82 Long term (current) use of aspirin; Z98.890 Other specified postprocedural states; Z96.651 Presence of right artificial knee joint; Z90.49 Acquired absence of other specified parts of digestive tract; Z87.898 Personal history of other specified conditions; Z86.39 Personal history of other endocrine, nutritional and metabolic disease; Z90.710 Acquired absence of both cervix and uterus; Z80.9 Family history of malignant neoplasm, unspecified
CPT/HCPCS: 88305; 80061; 43239; J2001; J2704

== ENCOUNTER 2019-07-21 07:32 | Day surgery (SDC) | payer OTHER ==
[2019-07-19 15:55] VITALS: BMI 34.4
[2019-07-21 07:53] VITALS: RESP 16; TEMP 97.5
[2019-07-21] MEDS ORDERED: PROPOFOL 10 MG/ML 20 ML VIAL IV ONE (08:25)
[2019-07-21] MEDS ORDERED: GLYCOPYRROLATE 0.2 MG/ML 2 ML VIAL ONE (08:25)
[2019-07-21] MEDS ORDERED: LIDOCAINE 1% INJ 10MG/ML (20 ML MDV) ONE (08:25)
--- NOTE | 2019-07-21 08:30 | P.GSHP ---
History of Present Illness H&P Date: 07/21/19 Chief Complaint: GI bleed This a 59-year-old female who presents today for EGD and colonoscopy. Patient issues of GI bleed. Been recently treated for colitis. Past Medical History Past Medical History: Asthma, Fibromyalgia, GERD/Reflux, Hypertension, Pneumonia Additional Past Medical History / Comment(s): fluctuates between constipation/diarrhea-pus in stool, blood occ in stool,abdominal pain,nausea, hypoglycemia, hx. hiatal hernia, hx adhesions, "antibiotic for bowel infection" History of Any Multi-Drug Resistant Organisms: None Reported Past Surgical History: Appendectomy, Section, Cholecystectomy, Hernia Repair, Hysterectomy, Joint Replacement, Orthopedic Surgery Additional Past Surgical History / Comment(s): C/S x2, arthroscopy rt knee, laparoscopy, RT KNEE REPLACEMENT, surgery to repair hiatal hernia, surgery for adhesions, oophorectomy Past Anesthesia/Blood Transfusion Reactions: Motion Sickness Additional Past Anesthesia/Blood Transfusion Reaction / Comment(s): headache after spinal, states does not agree with me. Smoking Status: Never smoker - Past Family History Mother Family Medical History: Cancer Father Family Medical History: Cancer Medications and Allergies Home Medications Medication Instructions Recorded Confirmed Type Albuterol Sulfate [Proair Hfa] 1 - 2 puff INHALATION Q6HR PRN 11/02/17 07/21/19 History Escitalopram [Lexapro] 20 mg PO HS 11/02/17 07/21/19 History lamoTRIgine [LaMICtal] 150 mg PO HS 11/02/17 07/21/19 History Budesonide/Formoterol Fumarate 2 puff INHALATION BID 09/24/18 07/21/19 History [Symbicort 160-4.5 Mcg Inhaler] traZODone HCL 50 mg PO HS 09/24/18 07/21/19 History Aspirin [Adult Low Dose Aspirin EC] 81 mg PO DAILY 12/23/18 07/21/19 History Losartan/Hydrochlorothiazide 1 tab PO HS 03/11/19 07/21/19 History [Hyzaar 50-12.5 Tablet] HYDROcodone/APAP 5-325MG [[place] 1 tab PO Q8HR PRN 07/19/19 07/21/19 History 5-325] diphenhydrAMINE [Benadryl] 25 mg PO DIRECTED PRN 07/19/19 07/21/19 History metroNIDAZOLE [Flagyl] 500 mg PO TID 07/19/19 07/21/19 History Allergies Allergy/AdvReac Type Severity Reaction Status Date / Time povidone-iodine Allergy Itching, Verified 07/19/19 15:36 [From Betadine] SOB soap [From Betadine] Allergy Itching Verified 07/19/19 15:36 Iodinated Contrast Media AdvReac Dyspnea, Verified 07/19/19 15:36 [Iodinated Contrast- Oral itching and IV Dye] levofloxacin [From Levaquin] AdvReac GI Verified 07/19/19 15:36 upset,SOB shellfish derived AdvReac Dyspnea Verified 07/19/19 15:36 Surgical - Exam Vital Signs Temp Pulse Resp BP Pulse Ox 97.5 F L 86 16 160/73 96 07/21/19 07:47 07/21/19 07:47 07/21/19 07:47 07/21/19 07:47 07/21/19 07:47 - General well developed, well nourished, no distress - Eyes PERRL - ENT normal pinna - Neck no masses - Respiratory normal expansion - Cardiovascular Rhythm: regular - Abdomen Abdomen: soft, non tender Assessment and Plan Assessment: GI bleed. We'll perform EGD and colonoscopy.
--- NOTE | 2019-07-21 08:59 | P.OP ---
Date of Procedure: 07/21/19 Preoperative Diagnosis: GI bleed Colitis Postoperative Diagnosis: Mild antral gastritis No significant inflammatory changes of colon Random colon biopsies pathology pending Procedure(s) Performed: EGD Colonoscopy Anesthesia: MAC Surgeon: Mohan Bautista Pathology: other (Random colon biopsies of right, transverse, left, sigmoid colon and rectum) Condition: stable Disposition: PACU Description of Procedure: The patient's placed on the endoscopy table in the lateral position. She received IV sedation. The gastroscope placed oropharynx and passed into the esophagus and into the stomach. Scope was then placed through the pylorus. The first and second portion of the duodenum appeared normal. Scope summer back the antrum and this appeared mildly inflamed. A biopsy was performed. The scope was unretroflexed and remainder of the stomach appeared normal. There was no significant gastritis or peptic ulcer disease visualized. The GE junction was at 47 is. There is no hiatal hernia. The distal esophagus appeared normal. The proximal esophagus. Normal. Scope was withdrawn for patient. Next digital rectal exam was performed which revealed no abnormalities. Flexible colonoscope was then placed patient anus and passed throughout the entire colon. The ileocecal valve was visualized. There were no inflammatory changes seen colon. Due to the patient's symptoms of diarrhea and blood random biopsies of the colon performed. A random biopsy of the right colon was performed the cold forcep. Scope was withdrawn remainder of the right colon appeared normal. In the transverse colon another random biopsies performed with a cold forcep. The scope was then brought back the descending and sigmoid: and random biopsies were performed in these areas. With the cold forcep. There is no inflammatory changes seen throughout the colon. The scope was then brought back into the rectum and this appeared normal. A another random biopsies performed cold forcep. Scope was withdrawn for patient.
[2019-07-21 09:11] VITALS: BP 117/61; PULSE 68
== END 2019-07-21 09:41 | disposition home or self-care (01) ==
LOC: ORWHC2ENDO 07:32
PROVIDERS: ATTEND Surgery
DX: K29.50 Unspecified chronic gastritis without bleeding (principal); K62.5 Hemorrhage of anus and rectum; R19.7 Diarrhea, unspecified; K59.00 Constipation, unspecified; K52.9 Noninfective gastroenteritis and colitis, unspecified; J45.909 Unspecified asthma, uncomplicated; M79.7 Fibromyalgia; K21.9 Gastro-esophageal reflux disease without esophagitis; I10 Essential (primary) hypertension; Z87.01 Personal history of pneumonia (recurrent); E16.2 Hypoglycemia, unspecified; Z90.49 Acquired absence of other specified parts of digestive tract; Z90.710 Acquired absence of both cervix and uterus; Z98.890 Other specified postprocedural states; F39 Unspecified mood [affective] disorder; Z80.9 Family history of malignant neoplasm, unspecified; Z79.82 Long term (current) use of aspirin; Z79.51 Long term (current) use of inhaled steroids; Z79.891 Long term (current) use of opiate analgesic; Z79.899 Other long term (current) drug therapy; Z88.3 Allergy status to other anti-infective agents; Z91.041 Radiographic dye allergy status; Z91.013 Allergy to seafood; Z91.048 Other nonmedicinal substance allergy status
CPT/HCPCS: 88305; 45380; 43239; J2001; J2704

== ENCOUNTER → 2019-08-05 | Day surgery (SDC) | payer OTHER | END | disposition home or self-care (01) | CPT/HCPCS: 88304; 49329; 22903; J2250; J1644; J1100; J2710; J0690; J2405; J2001; J3010; J1885; J2704; J1170 ==

== ENCOUNTER 2020-07-24 10:51 | Emergency (ER) | payer OTHER ==
[2020-07-24 10:59] VITALS: RESP 18
[2020-07-24] MEDS ORDERED: IPRATROPIUM-ALBUTEROL 3 ML NEB INHALATION STA (11:07)
--- NOTE | 2020-07-24 11:13 | ED ---
General Adult HPI - General Chief complaint: Shortness of Breath Stated complaint: Asthma Time Seen by Provider: 07/24/20 10:59 Source: patient, RN notes reviewed Mode of arrival: ambulatory Limitations: no limitations - History of Present Illness Initial comments: Patient is a pleasant 60-year-old female presenting to the emergency department with concerns for exacerbation of her asthma. Symptoms have been occurring for the past 2-3 weeks. Patient does have cough with occasional yellow sputum. Symptoms are similar to previous asthma. No leg pain or leg swelling. No fevers. No chest pain. - Related Data Home Medications Medication Instructions Recorded Confirmed Escitalopram [Lexapro] 20 mg PO HS 11/02/17 07/24/20 Budesonide/Formoterol Fumarate 2 puff INHALATION RT-BID 09/24/18 07/24/20 [Symbicort 160-4.5 Mcg Inhaler] traZODone HCL 50 mg PO HS 09/24/18 07/24/20 Losartan/Hydrochlorothiazide 1 tab PO HS 03/11/19 07/24/20 [Hyzaar 50-12.5 Tablet] diphenhydrAMINE [Benadryl] 25 - 50 mg PO HS PRN 07/19/19 07/24/20 Albuterol Sulfate [Ventolin HFA] 2 puff INHALATION RT-Q6H PRN 07/24/20 07/24/20 Cranberry Fruit Extract [Cranberry] 500 mg PO DAILY 07/24/20 07/24/20 Fexofenadine/Pseudoephedrine 1 tab PO DAILY PRN 07/24/20 07/24/20 [Windy-D 24 Hour Tablet] Meloxicam [Mobic] 15 mg PO HS 07/24/20 07/24/20 Omeprazole 20 mg PO DAILY 07/24/20 07/24/20 lamoTRIgine [LaMICtal] 100 mg PO BID 07/24/20 07/24/20 Previous Rx's Medication Instructions Recorded Azithromycin [Zithromax Z-pack (6 250 mg PO DIRECTED #6 tab 07/24/20 tabs)] methylPREDNISolone Dose Pack 24 mg PO DAILY #1 tab 07/24/20 [Medrol Dose Pack] Allergies Allergy/AdvReac Type Severity Reaction Status Date / Time povidone-iodine Allergy Itching, Verified 07/24/20 11:49 [From Betadine] SOB soap [From Betadine] Allergy Itching Verified 07/24/20 11:49 Iodinated Contrast Media AdvReac Dyspnea, Verified 07/24/20 11:49 [Iodinated Contrast- Oral itching and IV Dye] levofloxacin [From Levaquin] AdvReac GI Verified 07/24/20 11:49 upset,SOB shellfish derived AdvReac Dyspnea Verified 07/24/20 11:49 Review of Systems ROS Statement: Those systems with pertinent positive or pertinent negative responses have been documented in the HPI. ROS Other: All systems not noted in ROS Statement are negative. Constitutional: Denies: fever, chills Eyes: Denies: eye pain ENT: Denies: ear pain Respiratory: Reports: as per HPI, cough, dyspnea Cardiovascular: Denies: chest pain Endocrine: Denies: fatigue Gastrointestinal: Denies: abdominal pain Genitourinary: Denies: dysuria Musculoskeletal: Denies: back pain Skin: Denies: rash Neurological: Denies: weakness Past Medical History Past Medical History: Asthma, Fibromyalgia, GERD/Reflux, Hypertension, Pneumonia Additional Past Medical History / Comment(s): fluctuates between constipation/diarrhea-pus in stool, blood occ in stool,abdominal pain,nausea, hypoglycemia, hx. hiatal hernia, hx adhesions, THOUGHT POSSIBLE DIVERTICULITIS, BUT COLONSCOPY WAS NEGATIVE. History of Any Multi-Drug Resistant Organisms: None Reported Past Surgical History: Appendectomy, Section, Cholecystectomy, Hernia Repair, Hysterectomy, Joint Replacement, Orthopedic Surgery Additional Past Surgical History / Comment(s): C/S x2, arthroscopy rt knee, laparoscopy, RT KNEE REPLACEMENT, surgery to repair hiatal hernia, surgery for adhesions, oophorectomy Past Anesthesia/Blood Transfusion Reactions: Motion Sickness Additional Past Anesthesia/Blood Transfusion Reaction / Comment(s): headache after spinal (. ) states does not agree with me. Past Psychological History: Anxiety, Depression, PTSD Smoking Status: Never smoker Past Alcohol Use History: Rare Past Drug Use History: None Reported - Past Family History Mother Family Medical History: Cancer Father Family Medical History: Cancer General Exam Limitations: no limitations General appearance: alert, in no apparent distress Head exam: Present: normocephalic Eye exam: Present: normal appearance Neck exam: Present: normal inspection Respiratory exam: Present: wheezes (Minimal expiratory wheeze), decreased breath sounds Cardiovascular Exam: Present: regular rate, normal rhythm GI/Abdominal exam: Present: soft. Absent: tenderness Extremities exam: Present: normal inspection. Absent: pedal edema, calf tenderness Neurological exam: Present: alert Psychiatric exam: Present: normal affect, normal mood Skin exam: Present: normal color Course Vital Signs 07/24/20 07/24/20 07/24/20 10:54 11:31 11:33 Temperature 99.3 F Pulse Rate 81 84 Respiratory 18 18 Rate Blood Pressure 157/79 O2 Sat by Pulse 97 Oximetry 07/24/20 11:43 Temperature Pulse Rate 84 Respiratory Rate Blood Pressure O2 Sat by Pulse Oximetry Medical Decision Making - Medical Decision Making Patient reevaluated and feels better. Breath sounds improved. Patient updated on results and need for follow-up. Patient requests prescription for steroid and antibiotic. - Lab Data Lab Results 07/24/20 Range/Units 11:22 Coronavirus (PCR) Not Detected (Not Detectd) - Radiology Data Radiology results: image reviewed (Chest x-ray shows no acute process) Disposition Clinical Impression: Asthma exacerbation Disposition: HOME SELF-CARE Condition: Stable Instructions (If sedation given, give patient instructions): Asthma (ED) Additional Instructions: Please follow-up with primary care physician in the next couple days for recheck. Please also follow-up with her lung doctor. Return for fevers, difficulty breathing, worsening symptoms or other concerns. Prescriptions have been sent to your pharmacy, [facility] Prescriptions: methylPREDNISolone Dose Pack [Medrol Dose Pack] 24 mg PO DAILY #1 tab Azithromycin [Zithromax Z-pack (6 tabs)] 250 mg PO DIRECTED #6 tab Is patient prescribed a controlled substance at d/c from ED?: No Referrals: Chago Cowart MD [Primary Care Provider] - 1-2 days Time of Disposition: 12:34
--- NOTE | 2020-07-24 11:28 | XR ---
EXAMINATION TYPE: XR chest 2V DATE OF EXAM: 07/24/2020 COMPARISON: 12/23/2018 INDICATION: Cough, dyspnea TECHNIQUE: Frontal and lateral views of the chest are obtained. FINDINGS: The heart size is normal. The pulmonary vasculature is normal. The lungs are clear. IMPRESSION: 1. No acute pulmonary process.
[2020-07-24 13:06] VITALS: BP 162/78; PULSE 87; TEMP 99
== END 2020-07-24 13:06 | disposition home or self-care (01) ==
LOC: EC 10:51
DX: J45.901 Unspecified asthma with (acute) exacerbation (principal); K21.9 Gastro-esophageal reflux disease without esophagitis; F32.9 Major depressive disorder, single episode, unspecified; F41.9 Anxiety disorder, unspecified; I10 Essential (primary) hypertension; M79.7 Fibromyalgia; Z90.49 Acquired absence of other specified parts of digestive tract; Z90.710 Acquired absence of both cervix and uterus; Z20.822 Contact with and (suspected) exposure to COVID-19; Z79.51 Long term (current) use of inhaled steroids
CPT/HCPCS: 71046; 87635; 94640; 99283

== ENCOUNTER → 2020-08-16 | Outpatient (CLI) | payer OTHER ==
--- NOTE | 2020-08-17 10:36 | ECHOF ---
Referral Reason:J45.4 asthma MEASUREMENTS -------- HEIGHT: 180.3 cm WEIGHT: 113.4 kg BP: IVSd: 1.1 cm (0.6 - 1.1) LVIDd: 3.5 cm (3.9 - 5.3) LVPWd: 1.2 cm (0.6 - 1.1) IVSs: 2.0 cm LVIDs: 1.8 cm LVPWs: 1.8 cm LAESV Index (A-L): 19.49 ml/m Ao Diam: 3.0 cm (2.0 - 3.7) AV Cusp: 2.4 cm (1.5 - 2.6) LA Diam: 2.7 cm (2.7 - 3.8) MV EXCURSION: 20.130 mm (> 18.000) MV EF SLOPE: 135 mm/s (70 - 150) EPSS: 2.6 cm MV E Toro: 0.78 m/s MV DecT: 125 ms MV A Toro: 0.56 m/s MV E/A Ratio: 1.40 AV maxP.18 mmHg AV meanP.36 mmHg RAP: 5.00 mmHg RVSP: 13.59 mmHg FINDINGS -------- This was a technically adequate study. The left ventricular size is normal. Overall left ventricular systolic function is normal with, an EF between 55 - 60 %. Sigmoid shaped septum with focal hypertrophy of the basal septum. The remaini ng wall thickness is normal. The diastolic filling pattern is normal for the age of the patient 11. 20. The right ventricle is normal in size. The left atrial size is normal. Normal LA size by volume 22+/-6 ml/m2. The right atrial size is normal. The aortic valve is trileaflet and appears structurally normal. The mitral valve is normal. Mild mitral regurgitation is present. The tricuspid valve appears structurally normal. Trace tricuspid regurgitation present. Right juan tricular systolic pressure is normal at < 35 mmHg. There is no pulmonic regurgitation present. The aortic root size is normal. Normal inferior vena cava with normal inspiratory collapse consistent with estimated right atrial pre ssure of 5 mmHg. There is no pericardial effusion. CONCLUSIONS -------- 1. The left ventricular size is normal. 2. Overall left ventricular systolic function is normal with, an EF between 55 - 60 %. 3. Sigmoid shaped septum with focal hypertrophy of the basal septum. The remaining wall thickness is normal. 4. The diastolic filling pattern is normal for the age of the patient 11.20 5. Mild mitral regurgitation is present. 6. Trace tricuspid regurgitation present. 7. There is no pericardial effusion. ENVIRONMENTAL SERVICES MANAGER: Ro Coles RDCS
== END | disposition home or self-care (01) ==
LOC: RADECHMAIN 13:14
PROVIDERS: ATTEND Internal Medicine Critical Care Medicine
DX: I08.1 Rheumatic disorders of both mitral and tricuspid valves (principal)
CPT/HCPCS: 93306

== ENCOUNTER → 2020-08-16 | Outpatient (CLI) | payer OTHER ==
[2020-08-16 15:13] LABS: Basophils % (A) 1 %; Eosinophils # (A) 0.1 k/uL (0-0.7); Eosinophils % (A) 2 %; HCT 36.3 % (34.0-46.0); HGB 12.2 gm/dL (11.4-16.0); Lymphocytes # (A) 2.2 k/uL (1.0-4.8); Lymphocytes % (A) 37 %; MCH 30.6 pg (25.0-35.0); MCHC 33.7 g/dL (31.0-37.0); MCV 90.8 fL (80.0-100.0); Mean Platelet Volume 6.8; Monocytes # (A) 0.3 k/uL (0-1.0); Monocytes % (A) 6 %; Neutrophils # (A) 2.9 k/uL (1.3-7.7); Neutrophils % (A) 49 %; Platelet Count 285 k/uL (150-450); RDW 13.1 % (11.5-15.5); WBC 5.9 k/uL (3.8-10.6)
[2020-08-16 17:05] LABS: Total Eosinophil Count 121 #EOS/uL (150-300)
[2020-08-16 21:45] LABS: African American GFR (CKD) 81.7 (60.0-200.0); Albumin 4.5 g/dL (3.80-4.90); Albumin/Globulin Ratio 2.25 (1.60-3.17); Anion Gap 9.2 mmol/L (4.00-12.00); Calcium 9.6 mg/dL (8.7-10.3); Carbon Dioxide 27.8 mmol/L (21.6-31.8); Non-African American GFR(CKD) 70.5 (60.0-200.0); Potassium 4.2 mmol/L (3.5-5.5); Total Bilirubin 0.2 mg/dL (0.2-1.2); Total Protein 6.5 g/dL (6.2-8.2)
== END | disposition home or self-care (01) ==
LOC: LABWHC1 14:04
PROVIDERS: ATTEND Internal Medicine Critical Care Medicine
DX: J45.40 Moderate persistent asthma, uncomplicated (principal)
CPT/HCPCS: 36415; 80053; 82785; 85008; 85025

== ENCOUNTER → 2021-08-08 | Outpatient (CLI) | payer OTHER ==
--- NOTE | 2021-08-08 09:27 | CT ---
EXAMINATION TYPE: CT brain wo con, CT orbits wo con DATE OF EXAM: 08/08/2021 HISTORY: atreriovenus fistula per order. CT DLP: 1496 mGycm. Automated Exposure Control for Dose Reduction was Utilized. TECHNIQUE: CT scan of the head and orbits are performed without contrast. IV contrast could not be gi juan as patient refused COMPARISON: None. FINDINGS: There is no acute intracranial hemorrhage or midline shift identified. There is mild diff use ventricular and sulcal prominence consistent with mild diffuse age-related cerebral atrophy. Doyle -white matter differentiation is maintained. Images of the orbits. The paranasal sinuses to appear grossly clear. The globes are intact bilaterall y. The rectus muscles are symmetric and within normal limits. No intraconal mass is identified. No as ymmetric vessel prominence or enlargement clearly seen on noncontrast imaging. Suprasellar cistern is maintained. IMPRESSION: Unremarkable noncontrast studies.
== END | disposition home or self-care (01) ==
LOC: RADCTMAIN 08:25
DX: I77.0 Arteriovenous fistula, acquired (principal)
CPT/HCPCS: 70450; 70480

== ENCOUNTER → 2022-06-03 | Outpatient (CLI) | payer OTHER ==
[2022-06-03 14:24] LABS: Basophils # (A) 0.05 X 10*3/uL (0.00-0.10); Basophils % (A) 0.7 %; Eosinophils # (A) 0.11 X 10*3/uL (0.04-0.35); Eosinophils % (A) 1.6 %; HCT 41.7 % (37.2-46.3); HGB 13.2 g/dL (12.0-15.0); Immature Grans, Automated 0.3 %; Lymphocytes # (A) 1.92 X 10*3/uL (0.90-5.00); Lymphocytes % (A) 28.6 %; MCH 30.1 pg (27.0-32.0); MCHC 31.7 g/dL (32.0-37.0); MCV 95.2 fL (80.0-97.0); Mean Platelet Volume 8.8 fL (9.5-12.2); Monocytes # (A) 0.54 X 10*3/uL (0.20-1.00); NRBC Per 100 WBC 0 /100 WBCS (0.0-0.0); Neutrophils # (A) 4.07 X 10*3/uL (1.80-7.70); Neutrophils % (A) 60.8 %; Platelet Count 346 X 10*3/uL (140-440); RBC 4.38 X 10*6/uL (4.10-5.20); RDW 12.5 % (11.5-14.5); WBC 6.71 X 10*3/uL (4.50-10.00)
[2022-06-03 14:58] LABS: ALT 16 U/L (8-44); AST 12 U/L (13-35); African American GFR (CKD) 92.9 (60.0-200.0); Albumin 4.6 g/dL (3.8-4.9); Alkaline Phosphatase 60 U/L (41-126); Calcium 9.8 mg/dL (8.7-10.3); Carbon Dioxide 25.8 mmol/L (20.0-27.5); Chloride 105 mmol/L (96-109); Creatine Kinase 56 U/L (26-186); Globulin 2.3 g/dL (1.6-3.3); Glucose 94 mg/dL (70-110); Non-African American GFR(CKD) 80.1 (60.0-200.0); Potassium 4.5 mmol/L (3.5-5.5); Sodium 141 mmol/L (135-145); Total Protein 6.9 g/dL (6.2-8.2)
== END | disposition home or self-care (01) ==
LOC: LABWHC1 10:07
PROVIDERS: ATTEND Internal Medicine Critical Care Medicine
DX: J45.901 Unspecified asthma with (acute) exacerbation (principal)
CPT/HCPCS: 36415; 80053; 82550; 84443; 85025

== ENCOUNTER → 2022-08-11 | Outpatient (CLI) | payer OTHER ==
--- NOTE | 2022-08-11 11:26 | FL ---
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 Total images: 12. Total DAP: 3.0 TECHNIQUE: Real-time fluoroscopy of the diaphragm was performed during quiet breathing, deep inspirat ion expiration, and sniffing maneuver Findings: There is asymmetric elevation of the right hemidiaphragm. * During quiet breathing, there is slight blunting in initiation of movement of the right hemidiaphr agm and overall decreased excursion. * During deep inspiration expiration, some intermittent paradoxical movement and overall decreased e xcursion is noted. * During sniffing maneuver, there is darin right-sided paradoxical movement of the right hemidiaphra gm. 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
== END | disposition home or self-care (01) ==
LOC: RADFLMAIN 10:00
PROVIDERS: ATTEND Internal Medicine Critical Care Medicine
DX: J98.6 Disorders of diaphragm (principal)
CPT/HCPCS: 76000

== ENCOUNTER 2023-09-08 16:14 | Emergency (ER) | payer OTHER ==
--- NOTE | 2023-09-08 16:41 | ED ---
General Adult HPI - General Source: patient, RN notes reviewed Mode of arrival: EMS Limitations: no limitations <Mayra Soria - Last Filed: 09/08/23 16:36> <Jermaine Gates - Last Filed: 09/10/23 05:07> - General Chief complaint: Shortness of Breath Stated complaint: Difficulty breathing Time Seen by Provider: 09/08/23 16:36 - History of Present Illness Initial comments: Quick note: 63-year-old female with reported emergency department for evaluation of shortness of breath. She states that since yesterday she has had pain in her right-sided chest wall with difficulty breathing. 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 She follows with Dr. Gotti. She reports taking her breathing treatments. Does not use oxygen at home. Admits to cough. Denies fever. (Mayra Soria) 63-year-old female presenting with chief complaint of shortness of breath. Symptoms started yesterday. She admits to pain to the right-sided chest wall, she states that she feels like it is tight and sharp pain that is preventing her from taking a good deep breath. 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 She follows with Dr. Gotti. She has been taking breathing treatments at home which do not seem to help. She admits to cough. She denies fevers or chills. No palpitations dizziness or weakness. No numbness or tingling. No abdominal pain, nausea, vomiting. No injury or trauma. Patient does not use oxygen at home, EMS did place her on oxygen as it seemed to help her be more comfortable, however the patient has not been hypoxic on room air. No lower extremity swelling, recent surgery, recent travel, history of blood clots. (Jermaine Gates) - Related Data Home Medications Medication Instructions Recorded Confirmed Escitalopram [Lexapro] 20 mg PO HS 11/02/17 07/24/20 Budesonide/Formoterol Fumarate 2 puff INHALATION RT-BID 09/24/18 07/24/20 [Symbicort 160-4.5 Mcg Inhaler] traZODone HCL 50 mg PO HS 09/24/18 07/24/20 Losartan/Hydrochlorothiazide 1 tab PO HS 03/11/19 07/24/20 [Hyzaar 50-12.5 Tablet] diphenhydrAMINE [Benadryl] 25 - 50 mg PO HS PRN 07/19/19 07/24/20 Albuterol Sulfate [Ventolin HFA] 2 puff INHALATION RT-Q6H PRN 07/24/20 07/24/20 Cranberry Fruit Extract [Cranberry] 500 mg PO DAILY 07/24/20 07/24/20 Fexofenadine/Pseudoephedrine 1 tab PO DAILY PRN 07/24/20 07/24/20 [Windy-D 24 Hour Tablet] Meloxicam [Mobic] 15 mg PO HS 07/24/20 07/24/20 Omeprazole 20 mg PO DAILY 07/24/20 07/24/20 lamoTRIgine [LaMICtal] 100 mg PO BID 07/24/20 07/24/20 Previous Rx's Medication Instructions Recorded Azithromycin [Zithromax Z-pack (6 250 mg PO DIRECTED #6 tab 07/24/20 tabs)] methylPREDNISolone Dose Pack 24 mg PO DAILY #1 tab 07/24/20 [Medrol Dose Pack] methylPREDNISolone Dose Pack 4 mg PO DIRECTED #1 packet 07/09/22 [Medrol Dose Pack] methylPREDNISolone Dose Pack 4 mg PO DIRECTED #1 packet 09/08/23 [Medrol Dose Pack] Allergies Allergy/AdvReac Type Severity Reaction Status Date / Time povidone-iodine Allergy Itching, Verified 09/08/23 16:24 [From Betadine] SOB soap [From Betadine] Allergy Itching Verified 09/08/23 16:24 Iodinated Contrast Media AdvReac Dyspnea, Verified 09/08/23 16:24 [Iodinated Contrast- Oral itching and IV Dye] levofloxacin [From Levaquin] AdvReac GI Verified 09/08/23 16:24 upset,SOB shellfish derived AdvReac Dyspnea Verified 09/08/23 16:24 Review of Systems ROS Other: All systems not noted in ROS Statement are negative. <Mayra Soria - Last Filed: 09/08/23 16:36> ROS Other: All systems not noted in ROS Statement are negative. <Jermaine Gates - Last Filed: 09/10/23 05:07> ROS Statement: Those systems with pertinent positive or pertinent negative responses have been documented in the HPI. Past Medical History Past Medical History: Asthma, Fibromyalgia, GERD/Reflux, Hypertension, Pneumonia Additional Past Medical History / Comment(s): fluctuates between constipatio n/diarrhea-pus in stool, blood occ in stool,abdominal pain,nausea, hypoglycemia, hx. hiatal hernia, hx adhesions, THOUGHT POSSIBLE DIVERTICULITIS, BUT COLONSCOPY WAS NEGATIVE. History of Any Multi-Drug Resistant Organisms: None Reported Past Surgical History: Appendectomy, Section, Cholecystectomy, Hernia Repair, Hysterectomy, Joint Replacement, Orthopedic Surgery Additional Past Surgical History / Comment(s): C/S x2, arthroscopy rt knee, laparoscopy, RT KNEE REPLACEMENT, surgery to repair hiatal hernia, surgery for adhesions, oophorectomy Past Anesthesia/Blood Transfusion Reactions: Motion Sickness Additional Past Anesthesia/Blood Transfusion Reaction / Comment(s): headache after spinal (. ) states does not agree with me. Past Psychological History: Anxiety, Depression, PTSD Smoking Status: Never smoker Past Alcohol Use History: Rare Past Drug Use History: None Reported - Past Family History Mother Family Medical History: Cancer Father Family Medical History: Cancer <Mayra Soira - Last Filed: 09/08/23 16:36> General Exam Limitations: no limitations <Mayra Soria - Last Filed: 09/08/23 16:36> Limitations: no limitations General appearance: alert, in no apparent distress Head exam: Present: atraumatic, normocephalic Eye exam: Present: normal appearance, EOMI Neck exam: Present: normal inspection. Absent: meningismus Respiratory exam: Present: normal lung sounds bilaterally, chest wall tenderness (Right-sided chest wall tenderness). Absent: respiratory distress, wheezes, rales, rhonchi, stridor Cardiovascular Exam: Present: regular rate, normal rhythm, normal heart sounds. Absent: systolic murmur, diastolic murmur, rubs, gallop, clicks Extremities exam: Absent: pedal edema Neurological exam: Present: alert, oriented X3 Psychiatric exam: Present: normal affect, normal mood Skin exam: Present: warm, dry <Jermaine Gates - Last Filed: 09/10/23 05:07> - General Exam Comments Initial Comments: Visual Physical Exam Vital signs reviewed General: Well-appearing, nontoxic, no acute distress. Head: Normocephalic, atraumatic Eyes: PERRLA, EOMI ENT: Airway patent Chest: Nonlabored breathing Skin: No visual rash, normal skin tone Neuro: Alert and oriented 3 Musculoskeletal: No gross abnormalities (Mayra Soria) Course Vital Signs 09/08/23 09/08/23 09/08/23 16:21 21:59 22:45 Temperature 98 F Pulse Rate 89 89 72 Respiratory 20 18 18 Rate Blood Pressure 160/82 O2 Sat by Pulse 99 99 97 Oximetry 09/08/23 22:52 Temperature Pulse Rate 75 Respiratory 18 Rate Blood Pressure O2 Sat by Pulse 97 Oximetry Medical Decision Making <Mayra Soria - Last Filed: 09/08/23 16:36> - Lab Data Result diagrams: 09/08/23 16:36 09/08/23 16:36 <Jermaine Gates - Last Filed: 09/10/23 05:07> - Medical Decision Making Quick note preformed and electronically signed by Mayra Soria PA-C (Mayra Soria) Was pt. sent in by a medical professional or institution (GAIL Millard, PROFESSOR OF ARCHITECTURE, urgent care, hospital, or fci...) When possible be specific @ -No Did you speak to anyone other than the patient for history (EMS, parent, family, police, friend...)? What history was obtained from this source @ -No Did you review nursing and triage notes (agree or disagree)? Why? @ -I reviewed and agree with nursing and triage notes Were old charts reviewed (outside hosp., previous admission, EMS record, old EKG, old radiological studies, urgent care reports/EKG's, fci records)? Report findings @ -No old charts were reviewed Differential Diagnosis (chest pain, altered mental status, abdominal pain women, abdominal pain men, vaginal bleeding, weakness, fever, dyspnea, syncope, headache, dizziness, GI bleed, back pain, seizure, CVA, palpatations, mental health, musculoskeletal)? @ -MDM Differential Dyspnea: Coronary syndrome, arrhythmia, tamponade, asthma, COPD, pulmonary embolism, pneumonia, pneumothorax, pulmonary effusion, anaphylaxis, diabetic ketoacidosis, flailed chest, pulmonary contusion, diaphragmatic rupture, anemia, neuromuscu lar this is not meant to be an all-inclusive list. EKG interpreted by me (3pts min.). @ -EKG shows sinus rhythm ventricular rate 80. UT interval 158. QRS 114. QT 386. QTc 422. X-rays interpreted by me (1pt min.). @ -X-ray shows no acute pulmonary process CT interpreted by me (1pt min.). @ -None done U/S interpreted by me (1pt. min.). @ -None done What testing was considered but not performed or refused? (CT, X-rays, U/S, labs)? Why? @ -None What meds were considered but not given or refused? Why? @ -None Did you discuss the management of the patient with other professionals (pro fessionals i.e. , PA, PROFESSOR OF ARCHITECTURE, lab, RT, psych nurse, sr. social media & mobile manager, workers compensation coordinator, teacher, public safety officer, shoe caser)? Give summary @ -No Was smoking cessation discussed for >3mins.? @ -No Was critical care preformed (if so, how long)? @ -No Were there social determinants of health that impacted care today? How? (Homelessness, low income, unemployed, alcoholism, drug addiction, transportation, low edu. Level, literacy, decrease access to med. care, care home, rehab)? @ -No Was there de-escalation of care discussed even if they declined (Discuss DNR or withdrawal of care, Hospice)? DNR status @ -No What co-morbidities impacted this encounter? (DM, HTN, Smoking, COPD, CAD, Cancer, CVA, ARF, Chemo, Hep., AIDS, mental health diagnosis, sleep apnea, morbid obesity)? @ -None Was patient admitted / discharged? Hospital course, mention meds given and route, prescriptions, significant lab abnormalities, going to OR and other pertinent info. @ -71-year-old female presenting with chief complaint of shortness of breath. Admits to cough. She admits to pleuritic pain along the right-sided chest wall. Workup is initiated by triage and the patient is later brought back to hallway bed and examined by me. On physical exam this pain is reproducible, heart and lungs are clear to auscultation, no lower extremity edema. No leukocytosis or anemia. EKG shows no acute process and chest x-ray shows patient is given Toradol Decadron, on reassessment she has complete resolution of her symptoms. And the character of her pain is likely attributed to pleurisy. She will be treated with Medrol Dosepak and instructed to follow-up with her assignment manager. Discharged home. Follow-up with PCP. Report back to ER with any new or worsening symptoms. Discussed return parameters and answered all questions. Patient conveyed verbal understanding and agreed to the plan. I discussed this case in detail with my attending Dr. Akbar Undiagnosed new problem with uncertain prognosis? @ -No Drug Therapy requiring intensive monitoring for toxicity (Heparin, Nitro, Insulin, Cardizem)? @ -No Were any procedures done? @ -No Diagnosis/symptom? @ -Pleurisy Acute, or Chronic, or Acute on Chronic? @ -Acute Uncomplicated (without systemic symptoms) or Complicated (systemic symptoms)? @ -Uncomplicated Side effects of treatment? @ -No Exacerbation, Progression, or Severe Exacerbation? @ -No Poses a threat to life or bodily function? How? (Chest pain, [place], [place], pneumonia, PE, COPD, DKA, ARF, appy, cholecystitis, CVA, Diverticulitis, Homicidal, Suicidal, threat to staff... and all critical care pts) @ -Low likelihood (Jermaine Gates) - Lab Data Lab Results 09/08/23 09/08/23 09/08/23 Range/Units 16:36 16:36 16:36 WBC 5.8 (3.8-10.6) k/uL RBC 4.47 (3.80-5.40) m/uL Hgb 13.6 (11.4-16.0) gm/dL Hct 41.0 (34.0-46.0) % MCV 91.8 (80.0-100.0) fL MCH 30.3 (25.0-35.0) pg MCHC 33.1 (31.0-37.0) g/dL RDW 12.5 (11.5-15.5) % Plt Count 350 (150-450) k/uL MPV 7.1 Neutrophils % 78 % Lymphocytes % 14 % Monocytes % 5 % Eosinophils % 0 % Basophils % 0 % Neutrophils # 4.5 (1.3-7.7) k/uL Lymphocytes # 0.8 L (1.0-4.8) k/uL Monocytes # 0.3 (0-1.0) k/uL Eosinophils # 0.0 (0-0.7) k/uL Basophils # 0.0 (0-0.2) k/uL PT 10.1 (10.0-12.5) sec INR 0.9 (<1.2) APTT 25.4 (22.0-30.0) sec Sodium 138 (137-145) mmol/L Potassium 3.9 (3.5-5.1) mmol/L Chloride 104 (98-107) mmol/L Carbon Dioxide 21 L (22-30) mmol/L Anion Gap 13 mmol/L BUN 11 (7-17) mg/dL Creatinine 0.64 (0.52-1.04) mg/dL Est GFR (CKD-EPI)AfAm >90 (>60 ml/min/1.73 sqM) Est GFR (CKD-EPI)NonAf >90 (>60 ml/min/1.73 sqM) Glucose 165 H (74-99) mg/dL Lactic Ac Sepsis Rflx Plasma Lactic Acid Rodney (0.7-2.0) mmol/L Calcium 10.1 (8.4-10.2) mg/dL Total Bilirubin 0.3 (0.2-1.3) mg/dL AST 28 (14-36) U/L ALT 23 (4-34) U/L Alkaline Phosphatase 75 (38-126) U/L Total Protein 7.3 (6.3-8.2) g/dL Albumin 4.6 (3.5-5.0) g/dL Urine Color Urine Appearance (Clear) Urine pH (5.0-8.0) Ur Specific [place] (1.001-1.035) Urine Protein (Negative) Urine Glucose (UA) (Negative) Urine Ketones (Negative) Urine Blood (Negative) Urine Nitrite (Negative) Urine Bilirubin (Negative) Urine Urobilinogen (<2.0) mg/dL Ur Leukocyte Esterase (Negative) Urine RBC (0-5) /hpf Ur Squamous Epith Cells (0-4) /hpf 09/08/23 09/08/23 09/08/23 Range/Units 16:36 17:30 17:32 WBC (3.8-10.6) k/uL RBC (3.80-5.40) m/uL Hgb (11.4-16.0) gm/dL Hct (34.0-46.0) % MCV (80.0-100.0) fL MCH (25.0-35.0) pg MCHC (31.0-37.0) g/dL RDW (11.5-15.5) % Plt Count (150-450) k/uL MPV Neutrophils % % Lymphocytes % % Monocytes % % Eosinophils % % Basophils % % Neutrophils # (1.3-7.7) k/uL Lymphocytes # (1.0-4.8) k/uL Monocytes # (0-1.0) k/uL Eosinophils # (0-0.7) k/uL Basophils # (0-0.2) k/uL PT (10.0-12.5) sec INR (<1.2) APTT (22.0-30.0) sec Sodium (137-145) mmol/L Potassium (3.5-5.1) mmol/L Chloride (98-107) mmol/L Carbon Dioxide (22-30) mmol/L Anion Gap mmol/L BUN (7-17) mg/dL Creatinine (0.52-1.04) mg/dL Est GFR (CKD-EPI)AfAm (>60 ml/min/1.73 sqM) Est GFR (CKD-EPI)NonAf (>60 ml/min/1.73 sqM) Glucose (74-99) mg/dL Lactic Ac Sepsis Rflx Y Plasma Lactic Acid Rodney 2.1 H* (0.7-2.0) mmol/L Calcium (8.4-10.2) mg/dL Total Bilirubin (0.2-1.3) mg/dL AST (14-36) U/L ALT (4-34) U/L Alkaline Phosphatase (38-126) U/L Total Protein (6.3-8.2) g/dL Albumin (3.5-5.0) g/dL Urine Color Colorless Urine Appearance Clear (Clear) Urine pH 7.5 (5.0-8.0) Ur Specific [place] 1.005 (1.001-1.035) Urine Protein Negative (Negative) Urine Glucose (UA) Negative (Negative) Urine Ketones Negative (Negative) Urine Blood Trace H (Negative) Urine Nitrite Negative (Negative) Urine Bilirubin Negative (Negative) Urine Urobilinogen <2.0 (<2.0) mg/dL Ur Leukocyte Esterase Negative (Negative) Urine RBC 3 (0-5) /hpf Ur Squamous Epith Cells <1 (0-4) /hpf Disposition <Mayra Soria - Last Filed: 09/08/23 16:36> Is patient prescribed a controlled substance at d/c from ED?: No Time of Disposition: 22:40 <Jermaine Gates - Last Filed: 09/10/23 05:07> Clinical Impression: Pleurisy Disposition: HOME SELF-CARE Condition: Good Instructions (If sedation given, give patient instructions): Pleurisy (ED) Additional Instructions: Follow-up with assignment manager. Report back to ER with any new or worsening symptoms. Prescriptions: methylPREDNISolone Dose Pack [Medrol Dose Pack] 4 mg PO DIRECTED #1 packet Referrals: None,Stated [Primary Care Provider] - 1-2 days Reji Gotti MD [STAFF PHYSICIAN] - 1-2 days
[2023-09-08 16:43] VITALS: BP 160/82; TEMP 98
[2023-09-08 17:12] LABS: Basophils % (A) 0 %; Eosinophils % (A) 0 %; HGB 13.6 gm/dL (11.4-16.0); Lymphocytes # (A) 0.8 k/uL (1.0-4.8); Lymphocytes % (A) 14 %; MCH 30.3 pg (25.0-35.0); MCHC 33.1 g/dL (31.0-37.0); MCV 91.8 fL (80.0-100.0); Mean Platelet Volume 7.1; Monocytes # (A) 0.3 k/uL (0-1.0); Monocytes % (A) 5 %; Neutrophils # (A) 4.5 k/uL (1.3-7.7); Neutrophils % (A) 78 %; Platelet Count 350 k/uL (150-450); RBC 4.47 m/uL (3.80-5.40); RDW 12.5 % (11.5-15.5); WBC 5.8 k/uL (3.8-10.6)
[2023-09-08 17:22] LABS: ALT 23 U/L (4-34); AST 28 U/L (14-36); African American GFR (CKD) >90 (>60 ml/min/1.73 sqM); Albumin 4.6 g/dL (3.5-5.0); Alkaline Phosphatase 75 U/L (38-126); Anion Gap 13 mmol/L; Blood Urea Nitrogen 11 mg/dL (7-17); Calcium 10.1 mg/dL (8.4-10.2); Carbon Dioxide 21 mmol/L (22-30); Chloride 104 mmol/L (98-107); Glucose 165 mg/dL (74-99); Non-African American GFR(CKD) >90 (>60 ml/min/1.73 sqM); Potassium 3.9 mmol/L (3.5-5.1); Sodium 138 mmol/L (137-145); Total Bilirubin 0.3 mg/dL (0.2-1.3); Total Protein 7.3 g/dL (6.3-8.2)
[2023-09-08 17:43] LABS: Appearance,Urine Clear (Clear); Bilirubin,Urine Negative (Negative); Blood,Urine Trace (Negative); Color,Urine Colorless; Glucose,Urine (UA) Negative (Negative); Ketones,Urine Negative (Negative); Leukocyte Esterase,Urine Negative (Negative); Nitrite,Urine Negative (Negative); PH, Urine 7.5 (5.0-8.0); Protein,Urine Negative (Negative); RBC,Urine 3 /hpf (0-5); Specific Gravity,Urine 1.005 (1.001-1.035); Squamous Epithelial Cell,Urine <1 /hpf (0-4); Urobilinogen,Urine <2.0 mg/dL (<2.0)
--- NOTE | 2023-09-08 17:50 | XR ---
EXAMINATION TYPE: XR chest 2V DATE OF EXAM: 09/08/2023 COMPARISON: 07/08/2022 INDICATION: Difficulty breathing short of breath TECHNIQUE: Frontal and lateral views of the chest are obtained. FINDINGS: The heart size is normal. The pulmonary vasculature is normal. The lungs are clear. IMPRESSION: 1. No acute pulmonary process.
[2023-09-08 17:51] LABS: INR 0.9 (<1.2); Partial Thromboplastin Time 25.4 sec (22.0-30.0); Prothrombin Time 10.1 sec (10.0-12.5)
[2023-09-08] MEDS: KETOROLAC 15 MG/ML 1 ML VIAL IVP STA (21:48)
[2023-09-08] MEDS: DEXAMETHASONE SOD PHOSPHATE 10 MG/ML 1 ML VIAL IV STA (21:49)
[2023-09-08] MEDS: CALCIUM CARBONATE 500 MG CHEWABLE PO STA (21:58)
[2023-09-08 22:19] VITALS: RESP 18
[2023-09-08 22:56] VITALS: PULSE 75
== END 2023-09-08 22:55 | disposition home or self-care (01) ==
LOC: EC 16:14
DX: R09.1 Pleurisy (principal); Z91.013 Allergy to seafood; Z91.041 Radiographic dye allergy status; Z88.1 Allergy status to other antibiotic agents; Z88.8 Allergy status to other drugs, medicaments and biological substances
CPT/HCPCS: 36415; 93005; 80053; 83605; 85025; 85610; 85730; 81001; 71046; 99285; 96374; 96375; J1100; J1885

== ENCOUNTER → 2024-09-07 | Outpatient (CLI) | payer OTHER ==
--- NOTE | 2024-09-07 12:52 | CT ---
EXAMINATION TYPE: CT abdomen pelvis w con CT DLP: 2097.2 mGycm, Automated exposure control for dose reduction was used. DATE OF EXAM: 09/07/2024 12:22 PM COMPARISON: No direct comparisons. CLINICAL INDICATION:Female, 64 years old with history of R10.32 LLQ pain; abdominal pain TECHNIQUE: Standard CT of the abdomen and pelvis following the administration of 100 cc of Isovue 3 00 IV contrast material and oral contrast. Coronal and sagittal reformats were performed. FINDINGS: LOWER CHEST: Right basilar dependent mild subsegmental atelectasis. Chronic elevation of the right he midiaphragm. Small coronary artery calcifications. No pericardial effusion. ABDOMEN LIVER: No focal lesion. Measures 24.3 cm in CC dimension. Probable Bella lobe variant. GALLBLADDER AND BILE DUCTS: Gallbladder is surgically absent with mild intrahepatic and extra hepatic biliary dilatation likely physiologic and a postcholecystectomy change. No evidence of choledocholit hiasis. PANCREAS: Lipomatous pseudohypertrophy changes. SPLEEN: Unremarkable. ADRENAL GLANDS: Unremarkable. KIDNEYS AND URETERS: No evidence of hydronephrosis or renal calculus. The kidneys enhance symmetrical ly. Contrast is demonstrated within both collecting systems on the delayed phase. PELVIS BLADDER: Incompletely distended but grossly unremarkable. REPRODUCTIVE: The uterus is surgically absent. ABDOMEN & PELVIS STOMACH AND BOWEL: Postsurgical changes of the GE junction with small hiatal hernia.Enteric contrast reaches the ascending colon. Moderate amount of stool is present within the proximal colon. No focal bowel wall thickening or surrounding inflammatory changes. The appendix is not identified however the re are no significant inflammatory changes within the right lower quadrant. No evidence of bowel obst ruction. PERITONEUM: No evidence of pneumoperitoneum or free fluid. VASCULATURE: Mild atherosclerotic calcifications are present throughout the abdominal aorta and its b ranches. No evidence of aortic aneurysm. MUSCULOSKELETAL: No acute osseous abnormalities. Grade 1 anterolisthesis of L5 and S1 with left-sided pars defect. Chronic appearing anterior wedge compression deformity of the L1 vertebral body with ap proximately 50% height loss and 3 mm retropulsion. No paraspinal edema. LYMPH NODES: No evidence for lymphadenopathy. SOFT TISSUE/ABDOMINAL WALL: Small fat filled umbilical hernia. IMPRESSION: 1. No CT evidence for acute intra-abdominal/pelvic process. 2. Chronic-appearing anterior wedge compression deformity L1 vertebral body with approximately 50% he ight loss and 3 mm retropulsion. 3. Postsurgical changes at the GE junction with small hiatal hernia. [facility], , 09/07/2024 12:49 PM
== END | disposition home or self-care (01) ==
LOC: RADCTMAIN 11:01
PROVIDERS: ATTEND Surgery
DX: K44.9 Diaphragmatic hernia without obstruction or gangrene (principal); M48.56XA Collapsed vertebra, not elsewhere classified, lumbar region, initial encounter for fracture
CPT/HCPCS: 74177; Q9967